=== PATIENT | female | born 1945 | race Caucasian/White ===

== ENCOUNTER → 2018-11-23 | Outpatient (CLI) | payer MEDICARE ==
[~2018-11-23] MED LIST: AZOPT; BLOOD PRESSURE MED PO; CEPH-368 PO; DOXYLAMINE; INSU100V12 SQ-INSULIN; INSU100V13 SQ-INSULIN; LOSA100T14 PO; LUMIGAN; METR500T PO; OMEP-110 PO; PREG25CA PO; SERT25TA PO; TETR15DR16 EACHEYE; TIMOLOL MALEATE; TRAM-47 PO
== END | disposition home or self-care (01) ==
LOC: CFH 12:28
PROVIDERS: ATTEND Family Medicine
DX: Z12.39 Encounter for other screening for malignant neoplasm of breast (principal); R92.1 Mammographic calcification found on diagnostic imaging of breast; M85.88 Other specified disorders of bone density and structure, other site
CPT/HCPCS: 76642; 77080; 77066

== ENCOUNTER 2019-01-06 14:07 | Outpatient (CLI) | payer MEDICARE | END 2019-01-06 23:59 | disposition home or self-care (01) | LOC: CVU 14:07 | PROVIDERS: ATTEND Internal Medicine Cardiovascular Disease | DX: I08.0 Rheumatic disorders of both mitral and aortic valves (principal); E65 Localized adiposity; I10 Essential (primary) hypertension; E11.9 Type 2 diabetes mellitus without complications; Z87.891 Personal history of nicotine dependence; Z86.73 Personal history of transient ischemic attack (TIA), and cerebral infarction without residual deficits | CPT/HCPCS: 93306; 94060; 94726; 94729 ==

== ENCOUNTER 2019-03-26 08:06 | Inpatient (IN) | payer MEDICARE ==
[2019-03-23 13:09] LABS: BASOPHILS # (AUTO) 0.03 x10^3/uL (0-0.1); BASOPHILS % (AUTO) 0 % (0-1); EOSINOPHILS # (AUTO) 0.32 x10^3/uL (0-0.4); EOSINOPHILS % (AUTO) 3 % (1-7); LYMPHOCYTES # (AUTO) 2.21 x10^3/uL (1-3.4); LYMPHOCYTES % (AUTO) 21 % (22-44); MD NO; MEAN CORPUSCULAR HEMOGLOBIN 30.2 pg (27.0-34.8); MEAN CORPUSCULAR HGB CONC 32.6 g/dL (32.4-35.8); MEAN CORPUSCULAR VOLUME 92.8 fL (80-100); MEAN PLATELET VOLUME 7.8 fL (7.4-10.4); MONOCYTES # (AUTO) 0.88 x10^3/uL (0.2-0.8); MONOCYTES % (AUTO) 9 % (2-9); NEUTROPHILS # (AUTO) 6.94 x10^3/uL (1.8-6.8); NEUTROPHILS % (AUTO) 67 % (42-75); PLATELET COUNT 320 x10^3/uL (130-400); RED BLOOD COUNT 4.42 x10^6/uL (3.82-5.3); RED CELL DISTRIBUTION WIDTH 13.3 % (9.6-15.2)
[2019-03-23 13:10] LABS: HCT (SEDRATE) 40.7 % (34.6-47.8)
[2019-03-23 13:12] LABS: CULTURE INDICATED? YES; MICROSCOPIC INDICATED
[2019-03-23 13:15] LABS: INTERNATIONAL NORMALIZED RATIO 1.02 (0.93-1.1); PROTHROMBIN TIME 10.7 Seconds (9.6-11.5)
[2019-03-23 13:17] LABS: ALANINE AMINOTRANSFERASE 21 U/L (12-78); ALBUMIN 3.5 g/dL (3.4-5.0); ANION GAP 8 mmol/L (5-15); CALCIUM 9.3 mg/dL (8.5-10.1); CHLORIDE 103 mmol/L (98-107); CREATININE 1.18 mg/dL (0.55-1.02)
[2019-03-23 13:19] LABS: ALKALINE PHOSPHATASE 67 U/L (45-117); BILIRUBIN,TOTAL 0.4 mg/dL (0.2-1.0); TOTAL PROTEIN 7.2 g/dL (6.4-8.2)
[~2019-03-26] VITALS: Ht 154.9 cm; Wt 58.3 kg
[~2019-03-26 08:06] MED LIST changes: +BACITRACIN 50,000 UNIT ONE; +BUPIVACAINE/EPI 0.5% 1:200K ONE; +LOSA50TA14 PO; +THROMBIN 20,000 UNIT VIAL TP ONE; +TRAM50TA2 PO; +TRANEXAMIC ACID 100 MG/ML, 10ML ONE
[2019-03-26] MEDS ORDERED: VANCOMYCIN PMX 1GM/200ML 200 ML IV STA (08:28)
[2019-03-26] MEDS ORDERED: LACTATED RINGERS 1,000 ML IV SCH (08:47)
[2019-03-26] MEDS ORDERED: MIDAZOLAM 1 MG/ML, 2ML ONE (09:36)
[2019-03-26] MEDS ORDERED: FENTANYL PF 250 MCG/5ML ONE (09:36)
[2019-03-26] MEDS ORDERED: PROPOFOL 100 ML ONE (09:36)
[2019-03-26] MEDS ORDERED: GLYCOPYRROLATE 0.4 MG/2 ML, 2ML ONE (09:39)
[2019-03-26] MEDS ORDERED: NEOSTIGMINE 1 MG/ML, 10ML ONE (09:39)
[2019-03-26] MEDS ORDERED: FENTANYL PF 100 MCG/2ML ONE (10:11)
[2019-03-26] MEDS ORDERED: DEXAMETHASONE 4 MG/ML, 1ML ONE (11:05)
[2019-03-26] MEDS ORDERED: EPHEDRINE 50 MG/ML, 1ML ONE (11:18)
[2019-03-26] MEDS ORDERED: hydrALAzine 20 MG/ML, 1ML IV PRN (12:00)
[2019-03-26] MEDS ORDERED: PROMETHAZINE 25 MG/ML, 1ML IV PRN (12:00)
[2019-03-26] MEDS ORDERED: HYDROcodone/APAP 7.5-325MG/15ML UDC PO PRN (12:00)
[2019-03-26] MEDS ORDERED: DIAZEPAM 5 MG/ML, 2ML IVPush PRN (12:00)
[2019-03-26] MEDS ORDERED: FENTANYL PF 100 MCG/2ML IV PRN (12:00)
[2019-03-26] MEDS ORDERED: ONDANSETRON 2MG/ML, 2ML IV PRN ×2 (12:00→16:00)
[2019-03-26] MEDS ORDERED: LABETALOL 5MG/ML, 20ML IV PRN ×2 (12:00→16:00)
[2019-03-26] MEDS ORDERED: THROMBIN 5,000 UNIT VIAL TP ONE (12:24)
[2019-03-26] MEDS ORDERED: PROPOFOL 10 MG/ML, 20ML ONE (12:32)
[2019-03-26] MEDS ORDERED: ONDANSETRON 2MG/ML, 2ML ONE (12:47)
[2019-03-26] MEDS ORDERED: HYDROcodone/APAP 7.5-325MG/15ML UDC PO STA (13:32)
[2019-03-26] MEDS ORDERED: KETOROLAC 30 MG/1 ML IVPush STA (13:33)
[2019-03-26] MEDS ORDERED: HYDROcodone/APAP 7.5-325MG/15ML UDC ONE (13:40)
[2019-03-26] MEDS ORDERED: DIPHENHYDRAMINE 50 MG/ML, 1ML ONE (13:40)
[2019-03-26] MEDS ORDERED: KETOROLAC 30 MG/1 ML ONE (13:40)
[2019-03-26] MEDS ORDERED: HYDROmorphone 2 MG/ML, 1ML ONE (13:58)
[2019-03-26] MEDS ORDERED: DIPHENHYDRAMINE 50 MG/ML, 1ML IVPush ONE (14:00)
[2019-03-26] MEDS: HYDROmorphone 2 MG/ML, 1ML IVPush PRN ×4 (14:00→14:28)
[2019-03-26 15:20] VITALS: BP 125/53
[2019-03-26] MEDS ORDERED: DIPHENHYDRAMINE 50 MG CAPSULE PO PRN (16:00)
[2019-03-26] MEDS ORDERED: OXYcodone IR 5MG TABLET PO PRN (16:00)
[2019-03-26] MEDS ORDERED: PROMETHAZINE 25 MG/ML, 1ML IM PRN (16:00)
[2019-03-26] MEDS ORDERED: DIPHENHYDRAMINE 50 MG/ML, 1ML IM PRN (16:00)
[2019-03-26] MEDS ORDERED: BISACODYL 10 MG SUPP PR PRN (16:00)
[2019-03-26] MEDS ORDERED: SODIUM CHLORIDE 0.9% 1,000ML IVBOLUS PRN (16:00)
[2019-03-26] MEDS ORDERED: DIAZEPAM 5 MG TABLET PO PRN (16:00)
[2019-03-26] MEDS ORDERED: KETOROLAC 30 MG/1 ML IV ONE (16:00)
[2019-03-26] MEDS ORDERED: LORazepam 1MG TABLET PO PRN (16:00)
[2019-03-26] MEDS ORDERED: ACETAMINOPHEN 650 MG SUPP PR PRN (16:00)
[2019-03-26] MEDS ORDERED: DIPHENHYDRAMINE 50 MG/ML, 1ML IVPush PRN (16:00)
[2019-03-26] MEDS ORDERED: DIAZEPAM 5 MG/ML, 2ML IV PRN (16:00)
[2019-03-26] MEDS ORDERED: LACTATED RINGERS 1,000 ML IVBOLUS PRN (16:00)
[2019-03-26] MEDS ORDERED: HYDROcodone/APAP 10/325 MG TABLET PO PRN (16:00)
[2019-03-26] MEDS ORDERED: ACETAMINOPHEN 500 MG TABLET PO PRN (16:00)
[2019-03-26] MEDS: CEFAZOLIN PMX 1GM/50ML 50 ML IVPB SCH (16:13)
[2019-03-26] MEDS: D5%-0.9% NACL+KCL 20MEQ 1,000 ML IV SCH (16:13)
[2019-03-26] MEDS: TETRAHYDROZOLINE OPHTH 0.05% 15ML OP SCH (20:39)
[2019-03-26] MEDS: INSULIN GLARGINE 100 UNITS/ML, PEN SQ-INSULIN SCH (20:39)
[2019-03-26] MEDS: SERTRALINE 50MG TABLET PO SCH (20:39)
[2019-03-26] MEDS: OMEPRAZOLE 20 MG CAPSULE.DR PO SCH (20:39)
[2019-03-26] MEDS: LOSARTAN 50MG TABLET PO SCH (20:39)
[2019-03-26 20:58] VITALS: BP 104/54
[2019-03-26] MEDS ORDERED: ZOLPIDEM 5MG TABLET PO PRN (21:00)
[2019-03-26] MEDS: OXYcodone/APAP 5/325MG TABLET PO PRN ×2 (23:06→23:44)
[2019-03-26] MEDS ORDERED: KETOROLAC 30 MG/1 ML IM PRN (23:30)
[2019-03-27 00:35] VITALS: BP 112/65
[2019-03-27] MEDS: CEFAZOLIN PMX 1GM/50ML 50 ML IVPB SCH (01:04)
[2019-03-27] MEDS: D5%-0.9% NACL+KCL 20MEQ 1,000 ML IV SCH ×3 (01:48→23:33)
[2019-03-27 05:27] LABS: BASOPHILS # (AUTO) 0.13 x10^3/uL (0-0.1); BASOPHILS % (AUTO) 1 % (0-1); EOSINOPHILS % (AUTO) 0 % (1-7); LYMPHOCYTES # (AUTO) 0.67 x10^3/uL (1-3.4); LYMPHOCYTES % (AUTO) 4 % (22-44); MD NO; MEAN CORPUSCULAR HEMOGLOBIN 31.1 pg (27.0-34.8); MEAN CORPUSCULAR VOLUME 94.3 fL (80-100); MEAN PLATELET VOLUME 8.3 fL (7.4-10.4); MONOCYTES # (AUTO) 0.83 x10^3/uL (0.2-0.8); MONOCYTES % (AUTO) 5 % (2-9); NEUTROPHILS % (AUTO) 90 % (42-75); PLATELET COUNT 268 x10^3/uL (130-400); RED BLOOD COUNT 3.76 x10^6/uL (3.82-5.3); RED CELL DISTRIBUTION WIDTH 13.2 % (9.6-15.2)
[2019-03-27 07:05] VITALS: BP 101/48
[2019-03-27] MEDS: SENNA/DOCUSATE TABLET PO SCH (07:29)
[2019-03-27] MEDS: MAGNESIUM HYDROXIDE 8%, 30ML UDC PO PRN (07:29)
--- NOTE | 2019-03-27 12:26 | NUR ---
REC: NPO/NGT except ice chips/sips; orange sheet posted in room with swallowing precautions Addendum: 03/27/19 at 1227 by Hope WHITE Amended: Links added.
[2019-03-27 13:14] VITALS: BP 128/74
[2019-03-27 19:50] VITALS: BP 125/49
[2019-03-27] MEDS: TETRAHYDROZOLINE OPHTH 0.05% 15ML OP SCH (20:18)
[2019-03-27] MEDS: INSULIN GLARGINE 100 UNITS/ML, PEN SQ-INSULIN SCH (20:18)
[2019-03-27] MEDS: SERTRALINE 50MG TABLET PO SCH (20:18)
[2019-03-27] MEDS: OMEPRAZOLE 20 MG CAPSULE.DR PO SCH (20:18)
[2019-03-27] MEDS: LOSARTAN 50MG TABLET PO SCH (20:18)
[2019-03-27] MEDS: morphine SULFATE 10 MG/ML, 1ML IV PRN (20:40)
[2019-03-28 00:32] VITALS: BP 133/37
[2019-03-28 05:31] LABS: BASOPHILS # (AUTO) 0.01 x10^3/uL (0-0.1); BASOPHILS % (AUTO) 0 % (0-1); EOSINOPHILS # (AUTO) 0.16 x10^3/uL (0-0.4); EOSINOPHILS % (AUTO) 1 % (1-7); LYMPHOCYTES # (AUTO) 1.99 x10^3/uL (1-3.4); LYMPHOCYTES % (AUTO) 18 % (22-44); MD NO; MEAN CORPUSCULAR HGB CONC 32.7 g/dL (32.4-35.8); MEAN CORPUSCULAR VOLUME 94.8 fL (80-100); MEAN PLATELET VOLUME 8.3 fL (7.4-10.4); MONOCYTES # (AUTO) 0.78 x10^3/uL (0.2-0.8); MONOCYTES % (AUTO) 7 % (2-9); NEUTROPHILS # (AUTO) 8.04 x10^3/uL (1.8-6.8); NEUTROPHILS % (AUTO) 73 % (42-75); PLATELET COUNT 248 x10^3/uL (130-400); RED BLOOD COUNT 3.93 x10^6/uL (3.82-5.3); RED CELL DISTRIBUTION WIDTH 13.8 % (9.6-15.2)
[2019-03-28] MEDS: SENNA/DOCUSATE TABLET PO SCH (07:32)
[2019-03-28] MEDS: morphine SULFATE 10 MG/ML, 1ML IV PRN ×2 (07:39→15:35)
[2019-03-28 08:00] VITALS: BP 147/68
[2019-03-28] MEDS: D5%-0.9% NACL+KCL 20MEQ 1,000 ML IV SCH ×2 (09:52→20:40)
[2019-03-28 14:00] VITALS: BP 134/74
[2019-03-28 20:11] VITALS: BP 127/68
[2019-03-28] MEDS: MAGNESIUM HYDROXIDE 8%, 30ML UDC PO PRN (20:17)
[2019-03-28] MEDS: SERTRALINE 50MG TABLET PO SCH (20:18)
[2019-03-28] MEDS: KETOROLAC 30 MG/1 ML IVPush PRN (20:18)
[2019-03-28] MEDS: OMEPRAZOLE 20 MG CAPSULE.DR PO SCH (20:18)
[2019-03-28] MEDS: DEXAMETHASONE 4 MG/ML, 1ML IV PRN (20:18)
[2019-03-28] MEDS: LOSARTAN 50MG TABLET PO SCH (20:18)
[2019-03-28] MEDS: TETRAHYDROZOLINE OPHTH 0.05% 15ML OP SCH (20:40)
[2019-03-28] MEDS: INSULIN GLARGINE 100 UNITS/ML, PEN SQ-INSULIN SCH (20:43)
[2019-03-29] MEDS: morphine SULFATE 10 MG/ML, 1ML IV PRN ×2 (00:15→10:01)
[2019-03-29 00:16] VITALS: BP 151/82
[2019-03-29] MEDS: DEXAMETHASONE 4 MG/ML, 1ML IV PRN ×3 (04:00→20:08)
[2019-03-29] MEDS: KETOROLAC 30 MG/1 ML IVPush PRN ×2 (04:01→13:42)
[2019-03-29 05:48] LABS: BASOPHILS # (AUTO) 0.02 x10^3/uL (0-0.1); BASOPHILS % (AUTO) 0 % (0-1); EOSINOPHILS % (AUTO) 0 % (1-7); LYMPHOCYTES # (AUTO) 0.59 x10^3/uL (1-3.4); LYMPHOCYTES % (AUTO) 6 % (22-44); MD NO; MEAN CORPUSCULAR HGB CONC 33.1 g/dL (32.4-35.8); MEAN CORPUSCULAR VOLUME 93.5 fL (80-100); MEAN PLATELET VOLUME 8.6 fL (7.4-10.4); MONOCYTES # (AUTO) 0.23 x10^3/uL (0.2-0.8); MONOCYTES % (AUTO) 2 % (2-9); NEUTROPHILS # (AUTO) 8.88 x10^3/uL (1.8-6.8); NEUTROPHILS % (AUTO) 91 % (42-75); PLATELET COUNT 291 x10^3/uL (130-400); RED BLOOD COUNT 4.15 x10^6/uL (3.82-5.3); RED CELL DISTRIBUTION WIDTH 12.9 % (9.6-15.2)
[2019-03-29] MEDS: D5%-0.9% NACL+KCL 20MEQ 1,000 ML IV SCH ×2 (06:34→19:30)
[2019-03-29 06:47] VITALS: BP 134/73
[2019-03-29] MEDS: SENNA/DOCUSATE TABLET PO SCH (07:35)
[2019-03-29 12:31] VITALS: BP 145/81
[2019-03-29] MEDS ORDERED: HYDROcodone/APAP 7.5-325MG/15ML UDC PO PRN (14:00)
[2019-03-29 18:36] VITALS: BP 122/70
[2019-03-29] MEDS: MAGNESIUM HYDROXIDE 8%, 30ML UDC PO PRN (20:07)
[2019-03-29] MEDS: SERTRALINE 50MG TABLET PO SCH (20:07)
[2019-03-29] MEDS: OMEPRAZOLE 20 MG CAPSULE.DR PO SCH (20:07)
[2019-03-29] MEDS: LOSARTAN 50MG TABLET PO SCH (20:08)
[2019-03-29] MEDS: TETRAHYDROZOLINE OPHTH 0.05% 15ML OP SCH (20:08)
[2019-03-29] MEDS: INSULIN GLARGINE 100 UNITS/ML, PEN SQ-INSULIN SCH (20:27)
[2019-03-30] MEDS: KETOROLAC 30 MG/1 ML IVPush PRN ×2 (00:03→08:20)
[2019-03-30 01:02] VITALS: BP 139/67
[2019-03-30] MEDS: D5%-0.9% NACL+KCL 20MEQ 1,000 ML IV SCH ×2 (04:38→11:09)
[2019-03-30] MEDS: DEXAMETHASONE 4 MG/ML, 1ML IV PRN (04:39)
[2019-03-30 05:13] LABS: BASOPHILS # (AUTO) 0.06 x10^3/uL (0-0.1); BASOPHILS % (AUTO) 0 % (0-1); EOSINOPHILS % (AUTO) 0 % (1-7); LYMPHOCYTES # (AUTO) 0.82 x10^3/uL (1-3.4); LYMPHOCYTES % (AUTO) 6 % (22-44); MD NO; MEAN CORPUSCULAR HEMOGLOBIN 30.4 pg (27.0-34.8); MEAN CORPUSCULAR HGB CONC 32.7 g/dL (32.4-35.8); MEAN PLATELET VOLUME 8.4 fL (7.4-10.4); MONOCYTES # (AUTO) 0.36 x10^3/uL (0.2-0.8); MONOCYTES % (AUTO) 3 % (2-9); NEUTROPHILS % (AUTO) 90 % (42-75); PLATELET COUNT 268 x10^3/uL (130-400); RED BLOOD COUNT 4.01 x10^6/uL (3.82-5.3); RED CELL DISTRIBUTION WIDTH 13.1 % (9.6-15.2)
[2019-03-30 06:36] VITALS: BP 124/60
[2019-03-30] MEDS: SENNA/DOCUSATE TABLET PO SCH (08:20)
[2019-03-30 13:54] VITALS: BP 132/46
[2019-03-30 14:25] VITALS: BP 123/66
[2019-03-30] MEDS ORDERED: DIAZ5TAB PO (14:40)
[2019-03-30] MEDS ORDERED: HYDR-3307 PO (14:40)
== END 2019-03-30 15:00 | disposition home health service (06) | DRG 472 ==
LOC: ORIP 08:06 → 4NOR 15:12 → DCLOUNGE 03-30 14:37
PROVIDERS: ADMIT Orthopaedic Surgery Orthopaedic Surgery of the Spine; ATTEND Orthopaedic Surgery Orthopaedic Surgery of the Spine
PROC: 0RG20A0 Fusion of 2 or more Cervical Vertebral Joints with Interbody Fusion Device, Anterior Approach, Anterior Column, Open Approach (ICD-10-PCS; 2019-03-26)
PROC: 00NW0ZZ Release Cervical Spinal Cord, Open Approach (ICD-10-PCS; 2019-03-26)
PROC: 4A11X4G Monitoring of Peripheral Nervous Electrical Activity, Intraoperative, External Approach (ICD-10-PCS; 2019-03-26)
PROC: 0RT30ZZ Resection of Cervical Vertebral Disc, Open Approach (ICD-10-PCS; principal; 2019-03-26 10:00)
DX: M48.02 Spinal stenosis, cervical region (principal); M50.01 Cervical disc disorder with myelopathy, high cervical region; M47.12 Other spondylosis with myelopathy, cervical region; M43.12 Spondylolisthesis, cervical region; M47.22 Other spondylosis with radiculopathy, cervical region; M50.11 Cervical disc disorder with radiculopathy, high cervical region; I10 Essential (primary) hypertension; E78.2 Mixed hyperlipidemia; I34.0 Nonrheumatic mitral (valve) insufficiency; E11.9 Type 2 diabetes mellitus without complications; J44.9 Chronic obstructive pulmonary disease, unspecified; Z86.73 Personal history of transient ischemic attack (TIA), and cerebral infarction without residual deficits; Z88.6 Allergy status to analgesic agent; Z88.0 Allergy status to penicillin; Z88.2 Allergy status to sulfonamides; Z88.8 Allergy status to other drugs, medicaments and biological substances
CPT/HCPCS: 36415; 71046; 72040; 74018; 80053; 81001; 82962; 85025; 85610; 85651; 85730; 87086; 93005; C1713; G0378; J0690; J1100; J1170; J1885; J2250; J2405; J2704; J2710; J3010; J3370; C1760; C1762; J1200; J1815; J2270; J3480; J7120

== ENCOUNTER 2019-04-20 17:39 | Inpatient (IN) | payer MEDICARE ==
[~2019-04-20] VITALS: Ht 154.9 cm; Wt 49.6 kg
[~2019-04-20 17:39] MED LIST changes: -BACITRACIN 50,000 UNIT ONE; -BUPIVACAINE/EPI 0.5% 1:200K ONE; +CLOB15CR TP; +DIAZ5TAB PO; +DOCU-131 PO; +HYDR-3307 PO; +POLY17PO5 PO; -THROMBIN 20,000 UNIT VIAL TP ONE; -TRANEXAMIC ACID 100 MG/ML, 10ML ONE
--- NOTE | 2019-04-20 17:39 | NUR ---
PT ARRIVED VIA [facility]. PT C/O NO SPEECH/DIFFICULT WITH SPEECH PRODUCTION. ONSET OF SYMTPOMS AT APPROX. 1715 PER EMS REPORT. UPON ARRIVAL TO ER, PT TAKEN STRAIGHT TO CT. MET PT IN HALLWAY FOR EXAM. PT EXPERIENCING POSS. LIMB ATAXIA IN RIGHT ARM BUT FOLLOWING COMMANDS. PT ABLE TO STATE NAME BUT UNABLE TO ANSWER OTHER QUESTIONS. PIV X 2 ESTABLISHED ELEMENTARY READING TUTOR BY EMS. FS ON SCENE 90. PER EMS REPORT, THEY RECEIVED WORD FROM FAMILY THAT PT HAS A HX TIAS AND NECK SURGERY WITH A POSS. 50% OCCLUSION OF CAROTID ARTERY. VITALS FROM EMS 128/74, HR 80 SINUS, 16 RESPIRATORY RATE, 97% ON ROOM AIR.
--- NOTE | 2019-04-20 17:47 | NUR ---
PT IN CT SCANNER AT THIS TIME.
--- NOTE | 2019-04-20 17:56 | NUR ---
PT BACK FROM CT TO TRAUMA BAY 04.
--- NOTE | 2019-04-20 17:58 | NUR ---
NEUROLOGIST AT BEDSIDE FOR EXAM. EXAM INCONSISTENT WITH PREVIOUS EXAM, MD AWARE.
--- NOTE | 2019-04-20 18:00 | NUR ---
UPON ARRIVAL BACK INTO ROOM, PT ABLE TO CONVERSE WITH FAMILY AND STAFF. PT SPEAKING IN COMPLETE AND CLEAR SENTENCES. STATES "ENTIRE BODY FEELS HEAVY AND WEAK." PT UNABLE TO LIFT ALL EXTREMITIES OFF GURNEY, MOVEMENTS APPEARED TO STAFF VERY SHAKEY.
[2019-04-20] MEDS ORDERED: OMNIPAQUE 350 MG/ML, 100ML BOTTLE ONE (18:05)
--- NOTE | 2019-04-20 18:07 | NUR ---
PT BELONGINGS GIVEN TO DAUGHTER (PHONE AND WALLET).
[2019-04-20 18:15] LABS: BASOPHILS # (AUTO) 0.06 x10^3/uL (0-0.1); BASOPHILS % (AUTO) 1 % (0-1); EOSINOPHILS # (AUTO) 0.25 x10^3/uL (0-0.4); EOSINOPHILS % (AUTO) 3 % (1-7); LYMPHOCYTES # (AUTO) 2.05 x10^3/uL (1-3.4); LYMPHOCYTES % (AUTO) 24 % (22-44); MD NO; MEAN CORPUSCULAR HEMOGLOBIN 31.6 pg (27.0-34.8); MEAN CORPUSCULAR HGB CONC 33.7 g/dL (32.4-35.8); MEAN CORPUSCULAR VOLUME 93.7 fL (80-100); MEAN PLATELET VOLUME 7.6 fL (7.4-10.4); MONOCYTES # (AUTO) 0.68 x10^3/uL (0.2-0.8); MONOCYTES % (AUTO) 8 % (2-9); NEUTROPHILS # (AUTO) 5.51 x10^3/uL (1.8-6.8); NEUTROPHILS % (AUTO) 64 % (42-75); PLATELET COUNT 340 x10^3/uL (130-400); RED BLOOD COUNT 3.72 x10^6/uL (3.82-5.3); RED CELL DISTRIBUTION WIDTH 13.5 % (9.6-15.2)
--- NOTE | 2019-04-20 18:15 | NUR ---
DISCUSSION WITH ED MD AND NEUROLOGIST HAD REGARDING INCONSISTENCIES IN NEURO EXAM, ALL CONCUR THAT PT SHOULD GET MRI BEFORE ADMINISTERING THROMBOLYTICS.
[2019-04-20 18:24] LABS: INTERNATIONAL NORMALIZED RATIO 1.05 (0.93-1.1)
--- NOTE | 2019-04-20 18:31 | NUR ---
NEURO ASSESSMENT PERFORMED AGAIN, AND AGAIN INCONSISTENT WITH PREVIOUS EXAM. PT SPEAKING, BUT WORDS ARE GARBLED AND SENTENCES ARE NOT MAKING SENSE. MOVEMENTS ARE THE SAME PREVIOUS EXAM. FAMILY AT BEDSIDE.
--- NOTE | 2019-04-20 18:50 | NUR ---
FAMILY GRABBED THIS RN IN HALLWAY. PT STATING "EXTREME PAIN IN HEAD," AND FAMILY STATES PT'S BP SPIKED TO 176. MD NOTIFIED AND MD TO BEDSIDE, NO NEW ORDERS RECEIVED. PLAN STILL FOR MRI BEFORE POSSIBLE TPA ADMINISTRATION.
[2019-04-20] MEDS ORDERED: LORazepam 2 MG/ML, 1ML ONE (19:06)
--- NOTE | 2019-04-20 19:10 | NUR ---
ASSUMED CARE OF PT AT THIS TIME. BEDSIDE REPORT AND CARE FROM HARRIET ROBLES RN'S. DR. LIMA, NEUROLOGIST, AT BEDSIDE. NEURO EVALUATION UNCHANGED PER MD, ALL EXTREMITIES WEAK, ABLE TO SLIGHTLY LIFT BOTH ARMS BUT SHAKING NOTED. UNABLE TO LIFT OR FOLLOW COMMANDS ON BLE EXAM, BUT STATES "I CAN FEEL YOU TOUCHING MY LEGS AND FEET THOUGH." PT ABLE TO STATE FIRST AND LAST NAME, MONTH, AND WHEN ASKED WHO THE PRESIDENT IS SHE STATED "I CAN'T REMEMBER HIS NAME BUT HE IS A WHITE MAN." PT SPEAKING IN FULL CLEAR SENTENCES AT THIS TIME. NO FACIAL OR MOUTH DROOP NOTED CURRENTLY. PT DENIES ANY HEAD OR HEADACHE PAIN, "MY NECK IS A LITTLE SORE, I HAD SURGERY A FEW WEEKS AGO." REPOSITIONED FOR COMFORT. MRI CALLED, TO COME TAKE PT. PT MEDICATED WITH ATIVAN PER PT AND FAMILY REQUEST FOR ANXITY WITH MRI EXAM. PT AND FAMILY DENIES ALLERGY TO ATIVAN. CONT PULSE OX, BP, CARDIAC MONITORS ARE IN PLACE, SR ON MONITOR. VSS. CALL LIGHT IN REACH. FALL PRECAUTIONS IN PLACE. SIDE RAILS UPX2. PT AND FAMILY UPDATED ON POC. AWAITING MRI RESULTS FOR DETERMINATION OF TPA APPROPRIATENESS FOR PT.
--- NOTE | 2019-04-20 19:11 | NUR ---
PT TO MRI AT THIS TIME. DR. LIMA AT BEDSIDE, AWARE. DISCUSSED POC WITH DR. LIMA AND DR. FLORES, NO NEW ORDERS RECEIVED. AWAITING MRI RESULTS.
[2019-04-20] MEDS ORDERED: LORazepam 2 MG/ML, 1ML IVPush ONE (19:30)
--- NOTE | 2019-04-20 19:38 | NUR ---
PT BACK FROM MRI. NEURO REMAINS UNCHANGED. PT SPEAKING IN FULL SENTENCES. DR. LIMA AT BEDSIDE DISCUSSING POC WITH PT. PT TO BE ADMITTED TO HOSPITAL, VERBALIZED UNDERSTANDING AND AGREES TO POC. VSS. ALL MONITORS IN PLACE. SR ON MONITOR. CALL LIGHT IN REACH. FALL PRECAUTIONS IN PLACE.
[2019-04-20] MEDS ORDERED: ASPIRIN 325 MG TABLET PO STA (19:44)
--- NOTE | 2019-04-20 19:45 | NUR ---
FAMILY BACK AT BEDSIDE. DR. FLORES AT BEDSIDE DISCUSSING POC AND TEST RESULTS WITH PT AND PT DAUGHTER/SON-IN-LAW. ALL VERBALIZED UNDERSTANDING, AGREE TO POC. AWAITING ROOM ON FLOOR. CALL LIGHT IN REACH.
[2019-04-20] MEDS ORDERED: ASPIRIN 325 MG TABLET ONE (19:55)
--- NOTE | 2019-04-20 19:58 | NUR ---
PT SWALLOW EVALUATION COMPLETED, PASSED. AIRWAY PATENT, ABLE TO SWALLOW WATER AND CLEAR OWN SECRETIONS WITHOUT DIFFICULTY. PT MORE ALERT AT THIS TIME, SPEECH EVEN MORE CLEAR, SPEAKING IN FULL SENTENCES, MEMORY IMPROVED, ABLE TO RECALL PLACE "[place]" ABLE TO RECALL GRANDSON'S NAME "DAVID MAYES" AND FATHER'S NAME "SMOKEY IS WHAT HE WENT BY." PT STILL UNABLE TO CALL YEAR OF "MAY" FOR MONTH. PT ABLE TO HOLD ON WATER AND TAKE SIPS WITH DIFFICULTY, MOVING ALL EXTREMITIES, BENDING LEGS INTO POSITION OF COMFORT AND MOVING ARMS WITHOUT ANY SHAKING. SR ON MONITOR. VSS. CALL LIGHT IN REACH. FALL PRECAUTIONS IN PLACE. AWAITING ROOM ON FLOOR.
--- NOTE | 2019-04-20 20:16 | NUR ---
PHONE/VERBAL REPORT TO JANIE BLEDSOE FOR ROOM 402-2. PT READY FOR TRANSPORT TO FLOOR
--- NOTE | 2019-04-20 20:30 | NUR ---
PT TRANSFERRED TO FLOOR AT THIS TIME WITH FAMILY, ALL BELONGINGS COLLECTED AND SENT TO FLOOR WITH PT. PT NEURO EVALUATION IMPROVED, ORIENTED TO SELF, RECALLING EVENT, MEDICAL HISTORY AND FAMILY INFORMATION THAT SHE WAS NOT ABLE TO COMMUNICATE PRIOR. WEAKNESS IMPROVING, MOVING ALL EXTREMITIES. SPEECH CLEAR, SPEAKING IN FULL SENTENCES. NO FACIAL/MOUTH DROOP NOTED. DENIES ANY PAIN, NUMBNESS/TINGLING, AND NEED TO USE RESTROOM. WARM BLANKETS AND SOCKS PROVIDED FOR COMFORT.
--- NOTE | 2019-04-20 20:48 | NUR ---
LATE ENTRY FOR 1940: NO TPA TO BE ADMIN PER DR. LIMA AND DR. FLORES AT THIS TIME S/P MRI, ASPIRIN 325MG PO TO BE ADMIN PER MD'S ORDERS.
[2019-04-20 21:00] VITALS: BP 154/70
[2019-04-20 21:13] VITALS: BP 154/70
[2019-04-20] MEDS ORDERED: TEMAZEPAM 15 MG CAPSULE PO PRN (23:00)
[2019-04-20] MEDS: ACETAMINOPHEN 650 MG/20.3 ML UDC PO PRN (23:02)
[2019-04-20] MEDS: HEPARIN 5,000 UNITS/ML, 1ML SQ SCH (23:03)
[2019-04-20] MEDS ORDERED: INSU100V8 SQ (23:14)
[2019-04-21 03:08] VITALS: BP 145/77
[2019-04-21 05:46] LABS: BASOPHILS # (AUTO) 0.04 x10^3/uL (0-0.1); BASOPHILS % (AUTO) 1 % (0-1); EOSINOPHILS # (AUTO) 0.32 x10^3/uL (0-0.4); EOSINOPHILS % (AUTO) 4 % (1-7); LYMPHOCYTES # (AUTO) 2.21 x10^3/uL (1-3.4); LYMPHOCYTES % (AUTO) 27 % (22-44); MD NO; MEAN CORPUSCULAR HEMOGLOBIN 30.2 pg (27.0-34.8); MEAN CORPUSCULAR HGB CONC 32.9 g/dL (32.4-35.8); MEAN CORPUSCULAR VOLUME 91.9 fL (80-100); MEAN PLATELET VOLUME 7.6 fL (7.4-10.4); MONOCYTES # (AUTO) 0.67 x10^3/uL (0.2-0.8); MONOCYTES % (AUTO) 8 % (2-9); NEUTROPHILS # (AUTO) 4.87 x10^3/uL (1.8-6.8); NEUTROPHILS % (AUTO) 60 % (42-75); PLATELET COUNT 320 x10^3/uL (130-400); RED BLOOD COUNT 3.91 x10^6/uL (3.82-5.3); RED CELL DISTRIBUTION WIDTH 13.7 % (9.6-15.2)
[2019-04-21 05:47] LABS: ANION GAP 8 mmol/L (5-15); CALCIUM 8.8 mg/dL (8.5-10.1); CHLORIDE 102 mmol/L (98-107); CHOLESTEROL, TOTAL 176 mg/dL (140-239); CREATININE 0.87 mg/dL (0.55-1.02); TRIGLYCERIDES 216 mg/dL (50-200); VLDL CHOLESTEROL 43 mg/dL (0-25)
[2019-04-21 05:49] LABS: CHOL/HDL RATIO 4.4; HDL CHOL % 23 % (28-40); HDL CHOLESTEROL (DIRECT) 40 mg/dL (40-60); LDL CHOLESTEROL,CALCULATED 93 mg/dL (54-169); LDL/HDL RATIO 2.3 (0.5-3.0)
[2019-04-21 07:48] VITALS: BP 119/78
[2019-04-21] MEDS: CLOPIDOGREL 75 MG TABLET PO SCH (07:51)
[2019-04-21] MEDS: ASPIRIN 81 MG TABLET CHEW PO/NG SCH (07:51)
[2019-04-21] MEDS: HEPARIN 5,000 UNITS/ML, 1ML SQ SCH ×2 (07:51→16:02)
[2019-04-21] MEDS: ACETAMINOPHEN 650 MG/20.3 ML UDC PO PRN (09:44)
[2019-04-21] MEDS ORDERED: DIAZEPAM 5 MG TABLET PO PRN (11:00)
[2019-04-21 12:53] VITALS: BP 95/53
[2019-04-21] MEDS ORDERED: SERTRALINE 50MG TABLET PO SCH (20:00)
[2019-04-21 20:04] VITALS: BP 126/65
[2019-04-21] MEDS: SERTRALINE 50MG TABLET PO SCH (20:31)
[2019-04-21] MEDS ORDERED: OMEPRAZOLE 20 MG CAPSULE.DR PO SCH (21:00)
[2019-04-22 00:18] VITALS: BP 145/55
[2019-04-22] MEDS: HEPARIN 5,000 UNITS/ML, 1ML SQ SCH ×2 (00:22→09:42)
[2019-04-22 03:35] VITALS: BP 134/72
[2019-04-22 06:59] VITALS: BP 93/54
[2019-04-22] MEDS ORDERED: CLOP75TA PO (09:11)
[2019-04-22] MEDS ORDERED: ASPI-515 PO/NG (09:11)
[2019-04-22] MEDS ORDERED: SERT25TA PO (09:11)
[2019-04-22] MEDS: CLOPIDOGREL 75 MG TABLET PO SCH (09:41)
[2019-04-22] MEDS: ASPIRIN 81 MG TABLET CHEW PO/NG SCH (09:42)
[2019-04-22] MEDS: SERTRALINE 50MG TABLET PO SCH (09:42)
== END 2019-04-22 11:10 | disposition home or self-care (01) | DRG 69 ==
LOC: ED 19:59 → EDIP 20:00 → 4WST 20:34 → DCLOUNGE 04-22 11:00
PROVIDERS: ADMIT Family Medicine; ATTEND Family Medicine
DX: G45.9 Transient cerebral ischemic attack, unspecified (principal); R47.01 Aphasia; E11.9 Type 2 diabetes mellitus without complications; E78.5 Hyperlipidemia, unspecified; I10 Essential (primary) hypertension; I25.10 Atherosclerotic heart disease of native coronary artery without angina pectoris; J44.9 Chronic obstructive pulmonary disease, unspecified; K22.0 Achalasia of cardia; L90.0 Lichen sclerosus et atrophicus; R29.703 NIHSS score 3; Z79.4 Long term (current) use of insulin; Z90.49 Acquired absence of other specified parts of digestive tract; Z88.2 Allergy status to sulfonamides; Z88.5 Allergy status to narcotic agent; Z88.8 Allergy status to other drugs, medicaments and biological substances; Z79.899 Other long term (current) drug therapy; Z87.891 Personal history of nicotine dependence; Z90.710 Acquired absence of both cervix and uterus; Z98.1 Arthrodesis status; Z86.73 Personal history of transient ischemic attack (TIA), and cerebral infarction without residual deficits
CPT/HCPCS: 0399T; 36415; 70450; 70496; 70498; 70551; 80047; 80048; 80061; 82962; 85025; 85610; 85730; 93005; 93306; 96374; G0378; J1644; Q9967; J2060

== ENCOUNTER 2019-05-21 12:18 | Outpatient (CLI) | payer MEDICARE | END 2019-05-21 23:59 | disposition home or self-care (01) | LOC: RAD 12:18 | PROVIDERS: ATTEND Internal Medicine Gastroenterology | DX: K21.9 Gastro-esophageal reflux disease without esophagitis (principal); K22.2 Esophageal obstruction; E11.8 Type 2 diabetes mellitus with unspecified complications; R13.19 Other dysphagia; J44.9 Chronic obstructive pulmonary disease, unspecified; G89.29 Other chronic pain | CPT/HCPCS: 74220 ==

== ENCOUNTER 2019-05-25 08:36 | Outpatient (CLI) | payer MEDICARE | END 2019-05-25 23:59 | disposition home or self-care (01) | LOC: CFH 08:36 | PROVIDERS: ATTEND Internal Medicine Cardiovascular Disease | DX: R07.89 Other chest pain (principal); R06.02 Shortness of breath | CPT/HCPCS: 78452; 93017; A9502; J2785 ==

== ENCOUNTER 2019-08-25 13:44 | Inpatient (IN) | payer MEDICARE ==
[~2019-08-25] VITALS: Ht 154.9 cm; Wt 49.8 kg
[~2019-08-25 13:44] MED LIST changes: +ASPI-496 PO; +ASPI-515 PO/NG; +CLOP75TA PO; +EZET10TA48 PO; +FURO-93 PO; -HYDR-3307 PO; +HYDR-36 PO; +INSU100V8 SQ; +LISI-170 PO; +METO-282 PO; +METO25TA35 PO/NG; +MIRT-34 PO; +NITR0.4T28 SL; +POTA10TA PO; +POTA20TA6 PO
--- NOTE | 2019-08-25 14:16 | NUR ---
PT WITH HX OF ESOPHAGEAL STENT S/P REMOVAL, PT STATES THE LAST FOUR DAYS SHE HAS HAD DIFFICULTY KEEPING FOOD/LIQUID DOWN. WORSE THIS AM. PT DENIES CP, SOB, TRAUMA. PT TO BP, CONT PULSE OX
--- NOTE | 2019-08-25 15:06 | NUR ---
PT RESTING ON ENZO AT THIS TIME, NAD NOTED, VSS. AWAITING PROVIDER ORDERS
[2019-08-25] MEDS ORDERED: OMNIPAQUE 350 MG/ML, 50 ML BOTTLE ONE (15:55)
[2019-08-25 15:57] LABS: BASOPHILS # (AUTO) 0.02 x10^3/uL (0-0.1); BASOPHILS % (AUTO) 0 % (0-1); EOSINOPHILS # (AUTO) 0.31 x10^3/uL (0-0.4); EOSINOPHILS % (AUTO) 4 % (1-7); LYMPHOCYTES # (AUTO) 2.25 x10^3/uL (1-3.4); LYMPHOCYTES % (AUTO) 30 % (22-44); MD NO; MEAN CORPUSCULAR HEMOGLOBIN 30.5 pg (27.0-34.8); MEAN CORPUSCULAR HGB CONC 32.5 g/dL (32.4-35.8); MEAN CORPUSCULAR VOLUME 93.9 fL (80-100); MEAN PLATELET VOLUME 7.8 fL (7.4-10.4); MONOCYTES # (AUTO) 0.59 x10^3/uL (0.2-0.8); MONOCYTES % (AUTO) 8 % (2-9); NEUTROPHILS # (AUTO) 4.35 x10^3/uL (1.8-6.8); NEUTROPHILS % (AUTO) 58 % (42-75); PLATELET COUNT 371 x10^3/uL (130-400); RED BLOOD COUNT 4.19 x10^6/uL (3.82-5.3); RED CELL DISTRIBUTION WIDTH 15.4 % (9.6-15.2)
--- NOTE | 2019-08-25 15:59 | NUR ---
PT BACK FROM ESOPHOGRAM, BP ELEVATED, WILL UPDATE ERMD. NAD AT THIS TIME. NO NEEDS VOICED BY PT
[2019-08-25 16:01] LABS: ALANINE AMINOTRANSFERASE 18 U/L (12-78); ALBUMIN 3.1 g/dL (3.4-5.0); ANION GAP 5 mmol/L (5-15); CALCIUM 9.2 mg/dL (8.5-10.1); CHLORIDE 108 mmol/L (98-107)
[2019-08-25 16:06] LABS: ALKALINE PHOSPHATASE 87 U/L (45-117); BILIRUBIN,TOTAL 0.5 mg/dL (0.2-1.0); CREATININE 0.78 mg/dL (0.55-1.02); TROPONIN I < 0.015 ng/mL (0.000-0.045)
--- NOTE | 2019-08-25 16:51 | NUR ---
PT RESTING ON KURTIS GIRALDO NOTED. DAUGHTER AT BEDSIDE, ERMD IN TO UPDATE PT ON POC, PT TO BE ADMITTED
[2019-08-25] MEDS ORDERED: EZET10TA70 PO (17:29)
[2019-08-25] MEDS ORDERED: CLOP75TA PO (17:29)
[2019-08-25] MEDS ORDERED: RANI150C PO (17:29)
[2019-08-25] MEDS ORDERED: ACETAMINOPHEN 325 MG TABLET PO PRN (17:30)
[2019-08-25] MEDS ORDERED: morphine SULFATE 10 MG/ML, 1ML IVPush PRN (17:30)
[2019-08-25] MEDS ORDERED: ONDANSETRON 2MG/ML, 2ML IVPush PRN (17:30)
[2019-08-25] MEDS ORDERED: NITROGLYCERIN SINGLE TAB 0.4 MG SL PRN (17:30)
[2019-08-25] MEDS ORDERED: ENALAPRILAT 1.25 MG/ML, 2ML IVPush PRN (17:30)
[2019-08-25] MEDS ORDERED: hydrALAzine 20 MG/ML, 1ML IVPush PRN (17:30)
[2019-08-25] MEDS ORDERED: DIAZEPAM 5 MG TABLET PO PRN (17:30)
[2019-08-25] MEDS ORDERED: ONDANSETRON ODT 4 MG PO PRN (17:30)
[2019-08-25] MEDS ORDERED: PROMETHAZINE 25 MG/ML, 1ML IM PRN (17:30)
--- NOTE | 2019-08-25 18:15 | NUR ---
REPORT CALLED TO RECIEVING RN
[2019-08-25 18:45] VITALS: BP 170/94
[2019-08-25] MEDS: D5%-0.45NACL+KCL 20MEQ 1,000 ML IV SCH (19:45)
[2019-08-25] MEDS: OMEPRAZOLE 20 MG CAPSULE.DR PO SCH (19:50)
[2019-08-25] MEDS: MIRTAZAPINE 15 MG TABLET PO SCH (19:50)
[2019-08-25] MEDS: METOPROLOL SUCCINATE 25 MG TAB.ER.24H PO SCH (19:51)
[2019-08-25] MEDS: PVP EACHEYE SCH (20:21)
[2019-08-25] MEDS: TETRAHYDRZ EACHEYE SCH (20:21)
[2019-08-25] MEDS: PEG EACHEYE SCH (20:21)
[2019-08-25] MEDS: DEXT EACHEYE SCH (20:21)
[2019-08-25 20:56] VITALS: BP 164/85
[2019-08-25 23:11] VITALS: BP 164/76
[2019-08-26 01:11] VITALS: BP 176/73
[2019-08-26 01:33] VITALS: BP 156/73
[2019-08-26 05:18] LABS: BASOPHILS # (AUTO) 0.02 x10^3/uL (0-0.1); BASOPHILS % (AUTO) 0 % (0-1); EOSINOPHILS % (AUTO) 6 % (1-7); LYMPHOCYTES # (AUTO) 1.83 x10^3/uL (1-3.4); LYMPHOCYTES % (AUTO) 27 % (22-44); MD NO; MEAN CORPUSCULAR HEMOGLOBIN 30.7 pg (27.0-34.8); MEAN CORPUSCULAR HGB CONC 32.9 g/dL (32.4-35.8); MEAN CORPUSCULAR VOLUME 93.5 fL (80-100); MEAN PLATELET VOLUME 8.1 fL (7.4-10.4); MONOCYTES # (AUTO) 0.69 x10^3/uL (0.2-0.8); MONOCYTES % (AUTO) 10 % (2-9); NEUTROPHILS # (AUTO) 3.85 x10^3/uL (1.8-6.8); NEUTROPHILS % (AUTO) 57 % (42-75); PLATELET COUNT 321 x10^3/uL (130-400); RED BLOOD COUNT 4.01 x10^6/uL (3.82-5.3); RED CELL DISTRIBUTION WIDTH 15.2 % (9.6-15.2)
[2019-08-26 05:26] LABS: ANION GAP 7 mmol/L (5-15); CALCIUM 8.6 mg/dL (8.5-10.1); CHLORIDE 109 mmol/L (98-107)
[2019-08-26 05:27] LABS: CREATININE 0.72 mg/dL (0.55-1.02)
[2019-08-26] MEDS: D5%-0.45NACL+KCL 20MEQ 1,000 ML IV SCH ×3 (06:03→22:38)
[2019-08-26 07:20] VITALS: BP 160/76
[2019-08-26] MEDS ORDERED: PROPOFOL 10 MG/ML, 50ML ONE (11:24)
[2019-08-26] MEDS ORDERED: HALOPERIDOL 5 MG/ML IV PRN (12:00)
[2019-08-26] MEDS ORDERED: HYDROmorphone 2 MG/ML, 1ML IVPush PRN (12:00)
[2019-08-26] MEDS ORDERED: ALBUTEROL SULFATE 2.5 MG/3 ML NPPB PRN (12:00)
[2019-08-26] MEDS ORDERED: hydrALAzine 20 MG/ML, 1ML IV PRN ×2 (12:00→20:30)
[2019-08-26] MEDS ORDERED: FENTANYL PF 100 MCG/2ML IV PRN (12:00)
[2019-08-26] MEDS ORDERED: LABETALOL 5MG/ML, 20ML IV PRN (12:00)
[2019-08-26] MEDS ORDERED: OXYcodone 5 MG/5 ML ORAL.SOL UDC PO PRN (12:00)
[2019-08-26] MEDS ORDERED: PROMETHAZINE 25 MG/ML, 1ML IV PRN (12:00)
[2019-08-26] MEDS ORDERED: hydrALAzine 20 MG/ML, 1ML ONE (12:14)
[2019-08-26] MEDS: EZETIMIBE 10 MG TABLET PO SCH (13:12)
[2019-08-26] MEDS: RANITIDINE HCL 150 MG PO SCH (13:13)
[2019-08-26] MEDS: CLOPIDOGREL 75 MG TABLET PO SCH (13:13)
[2019-08-26] MEDS: ASPIRIN 81 MG TABLET EC PO SCH (13:13)
[2019-08-26] MEDS: METOPROLOL SUCCINATE 25 MG TAB.ER.24H PO SCH ×2 (13:13→20:10)
[2019-08-26 13:20] VITALS: BP 136/65
[2019-08-26] MEDS: SUCRALFATE 1 GM/10 ML UDC PO SCH ×2 (16:22→20:10)
[2019-08-26 18:50] VITALS: BP 139/76
[2019-08-26] MEDS: MIRTAZAPINE 15 MG TABLET PO SCH (20:11)
[2019-08-26] MEDS: OMEPRAZOLE 20 MG CAPSULE.DR PO SCH (20:11)
[2019-08-26] MEDS: TETRAHYDRZ EACHEYE SCH (21:00)
[2019-08-26] MEDS: DEXT EACHEYE SCH (21:00)
[2019-08-26] MEDS: PVP EACHEYE SCH (21:00)
[2019-08-26] MEDS: PEG EACHEYE SCH (21:00)
[2019-08-27 00:39] VITALS: BP 147/60
[2019-08-27 06:30] LABS: CALCIUM 8.3 mg/dL (8.5-10.1); CHLORIDE 112 mmol/L (98-107)
[2019-08-27 06:34] LABS: ANION GAP 5 mmol/L (5-15); CREATININE 0.69 mg/dL (0.55-1.02)
[2019-08-27 07:24] VITALS: BP 131/77
[2019-08-27] MEDS: EZETIMIBE 10 MG TABLET PO SCH (08:49)
[2019-08-27] MEDS: SUCRALFATE 1 GM/10 ML UDC PO SCH ×4 (08:49→21:13)
[2019-08-27] MEDS: ASPIRIN 81 MG TABLET EC PO SCH (08:49)
[2019-08-27] MEDS: METOPROLOL SUCCINATE 25 MG TAB.ER.24H PO SCH ×2 (08:49→21:13)
[2019-08-27] MEDS: CLOPIDOGREL 75 MG TABLET PO SCH (08:49)
[2019-08-27] MEDS: RANITIDINE HCL 150 MG PO SCH (08:50)
[2019-08-27] MEDS: D5%-0.45NACL+KCL 20MEQ 1,000 ML IV SCH (13:00)
[2019-08-27 14:00] VITALS: BP 124/67
[2019-08-27 18:57] VITALS: BP 137/76
[2019-08-27] MEDS: TETRAHYDRZ EACHEYE SCH (21:00)
[2019-08-27] MEDS: DEXT EACHEYE SCH (21:00)
[2019-08-27] MEDS: PVP EACHEYE SCH (21:00)
[2019-08-27] MEDS: OMEPRAZOLE 20 MG CAPSULE.DR PO SCH (21:00)
[2019-08-27] MEDS: PEG EACHEYE SCH (21:00)
[2019-08-27] MEDS: MIRTAZAPINE 15 MG TABLET PO SCH (21:13)
[2019-08-28 00:18] VITALS: BP 149/70
[2019-08-28] MEDS: D5%-0.45NACL+KCL 20MEQ 1,000 ML IV SCH ×2 (02:09→15:20)
[2019-08-28 06:00] LABS: ANION GAP 5 mmol/L (5-15); CALCIUM 8.8 mg/dL (8.5-10.1); CHLORIDE 111 mmol/L (98-107)
[2019-08-28 06:01] LABS: CREATININE 0.71 mg/dL (0.55-1.02)
[2019-08-28] MEDS: SUCRALFATE 1 GM/10 ML UDC PO SCH ×4 (07:00→20:28)
[2019-08-28 07:31] VITALS: BP 155/72
[2019-08-28] MEDS ORDERED: SIMETHICONE DROPS 40 MG/0.6 ML BOTTLE ONE (07:43)
[2019-08-28] MEDS: EZETIMIBE 10 MG TABLET PO SCH (08:01)
[2019-08-28] MEDS: METOPROLOL SUCCINATE 25 MG TAB.ER.24H PO SCH ×2 (08:01→20:28)
[2019-08-28] MEDS: CLOPIDOGREL 75 MG TABLET PO SCH (08:01)
[2019-08-28] MEDS: ASPIRIN 81 MG TABLET EC PO SCH (08:01)
[2019-08-28] MEDS: RANITIDINE HCL 150 MG PO SCH (08:01)
[2019-08-28] MEDS ORDERED: FENTANYL PF 100 MCG/2ML ONE (08:29)
[2019-08-28] MEDS ORDERED: MIDAZOLAM 1 MG/ML, 2ML ONE (08:29)
[2019-08-28] MEDS ORDERED: FENTANYL PF 100 MCG/2ML IV PRN (09:00)
[2019-08-28] MEDS ORDERED: MEPERIDINE/PF 25MG/ML,1ML IVPush PRN (09:00)
[2019-08-28] MEDS ORDERED: ACETAMINOPHEN 325 MG TABLET PO PRN (09:00)
[2019-08-28] MEDS ORDERED: MORPHINE SULFATE 4 MG/ML, 1ML IVPush PRN (09:00)
[2019-08-28] MEDS ORDERED: LABETALOL 5MG/ML, 20ML IV PRN (09:00)
[2019-08-28] MEDS ORDERED: hydrALAzine 20 MG/ML, 1ML IV PRN (09:00)
[2019-08-28] MEDS ORDERED: PROMETHAZINE 25 MG/ML, 1ML IV PRN (09:00)
[2019-08-28] MEDS ORDERED: ONDANSETRON 2MG/ML, 2ML IV PRN (09:00)
[2019-08-28] MEDS ORDERED: MAGNESIUM SULFATE 4 GM in SODIUM CHLORIDE 0.9% 100 ML IV ONE (09:30)
[2019-08-28] MEDS ORDERED: POTASSIUM PHOSPHATE 22 MEQ in SODIUM CHLORIDE 0.9% 500 ML IV ONE (09:30)
[2019-08-28] MEDS: OMEPRAZOLE/SOD. BICARB. PACKET PO SCH ×2 (09:30→20:28)
[2019-08-28 14:22] VITALS: BP 128/71
[2019-08-28 19:06] VITALS: BP 145/69
[2019-08-28] MEDS: MIRTAZAPINE 15 MG TABLET PO SCH (20:28)
[2019-08-28] MEDS: DEXT EACHEYE SCH (20:39)
[2019-08-28] MEDS: PVP EACHEYE SCH (20:39)
[2019-08-28] MEDS: TETRAHYDRZ EACHEYE SCH (20:39)
[2019-08-28] MEDS: PEG EACHEYE SCH (20:39)
[2019-08-29 03:42] VITALS: BP 156/76
[2019-08-29] MEDS: D5%-0.45NACL+KCL 20MEQ 1,000 ML IV SCH ×2 (04:20→18:31)
[2019-08-29 05:42] LABS: BASOPHILS # (AUTO) 0.03 x10^3/uL (0-0.1); BASOPHILS % (AUTO) 0 % (0-1); EOSINOPHILS # (AUTO) 0.38 x10^3/uL (0-0.4); EOSINOPHILS % (AUTO) 5 % (1-7); LYMPHOCYTES # (AUTO) 2.07 x10^3/uL (1-3.4); LYMPHOCYTES % (AUTO) 28 % (22-44); MD NO; MEAN CORPUSCULAR HEMOGLOBIN 30.3 pg (27.0-34.8); MEAN CORPUSCULAR HGB CONC 32.2 g/dL (32.4-35.8); MEAN PLATELET VOLUME 8.2 fL (7.4-10.4); MONOCYTES # (AUTO) 0.72 x10^3/uL (0.2-0.8); MONOCYTES % (AUTO) 10 % (2-9); NEUTROPHILS % (AUTO) 56 % (42-75); PLATELET COUNT 249 x10^3/uL (130-400); RED BLOOD COUNT 3.78 x10^6/uL (3.82-5.3); RED CELL DISTRIBUTION WIDTH 14.9 % (9.6-15.2)
[2019-08-29 05:53] LABS: ALBUMIN 2.5 g/dL (3.4-5.0); CHLORIDE 110 mmol/L (98-107)
[2019-08-29 05:57] LABS: ALANINE AMINOTRANSFERASE 14 U/L (12-78); ALKALINE PHOSPHATASE 68 U/L (45-117); ANION GAP 4 mmol/L (5-15); BILIRUBIN,TOTAL 0.3 mg/dL (0.2-1.0); CALCIUM 8.2 mg/dL (8.5-10.1); CREATININE 0.73 mg/dL (0.55-1.02); TOTAL PROTEIN 5.4 g/dL (6.4-8.2)
[2019-08-29 07:16] VITALS: BP 127/69
[2019-08-29] MEDS: SUCRALFATE 1 GM/10 ML UDC PO SCH ×4 (07:42→20:06)
[2019-08-29] MEDS: ASPIRIN 81 MG TABLET EC PO SCH (08:58)
[2019-08-29] MEDS: EZETIMIBE 10 MG TABLET PO SCH (08:59)
[2019-08-29] MEDS: METOPROLOL SUCCINATE 25 MG TAB.ER.24H PO SCH ×2 (08:59→21:25)
[2019-08-29] MEDS: CLOPIDOGREL 75 MG TABLET PO SCH (08:59)
[2019-08-29] MEDS: RANITIDINE HCL 150 MG PO SCH (09:00)
[2019-08-29] MEDS: OMEPRAZOLE/SOD. BICARB. PACKET PO SCH ×2 (09:00→20:06)
[2019-08-29 14:35] VITALS: BP 120/69
[2019-08-29 19:40] VITALS: BP 173/73
[2019-08-29] MEDS: TETRAHYDRZ EACHEYE SCH (20:05)
[2019-08-29] MEDS: PVP EACHEYE SCH (20:05)
[2019-08-29] MEDS: PEG EACHEYE SCH (20:05)
[2019-08-29] MEDS: DEXT EACHEYE SCH (20:05)
[2019-08-29] MEDS: MIRTAZAPINE 15 MG TABLET PO SCH (20:05)
[2019-08-29 21:09] VITALS: BP 133/71
[2019-08-30 03:59] VITALS: BP 128/65
[2019-08-30 04:43] LABS: BASOPHILS # (AUTO) 0.05 x10^3/uL (0-0.1); BASOPHILS % (AUTO) 1 % (0-1); EOSINOPHILS # (AUTO) 0.19 x10^3/uL (0-0.4); EOSINOPHILS % (AUTO) 3 % (1-7); LYMPHOCYTES # (AUTO) 2.07 x10^3/uL (1-3.4); LYMPHOCYTES % (AUTO) 28 % (22-44); MD NO; MEAN CORPUSCULAR HEMOGLOBIN 30.5 pg (27.0-34.8); MEAN CORPUSCULAR HGB CONC 32.3 g/dL (32.4-35.8); MEAN CORPUSCULAR VOLUME 94.3 fL (80-100); MEAN PLATELET VOLUME 8.4 fL (7.4-10.4); MONOCYTES # (AUTO) 0.73 x10^3/uL (0.2-0.8); MONOCYTES % (AUTO) 10 % (2-9); NEUTROPHILS # (AUTO) 4.33 x10^3/uL (1.8-6.8); NEUTROPHILS % (AUTO) 59 % (42-75); PLATELET COUNT 282 x10^3/uL (130-400); RED BLOOD COUNT 3.85 x10^6/uL (3.82-5.3); RED CELL DISTRIBUTION WIDTH 14.5 % (9.6-15.2)
[2019-08-30 04:56] LABS: ANION GAP 4 mmol/L (5-15); CALCIUM 8.4 mg/dL (8.5-10.1); CHLORIDE 110 mmol/L (98-107)
[2019-08-30 06:36] VITALS: BP 147/60
[2019-08-30] MEDS: D5%-0.45NACL+KCL 20MEQ 1,000 ML IV SCH (07:20)
[2019-08-30] MEDS ORDERED: OMEP1PAC PO (07:55)
[2019-08-30] MEDS ORDERED: SUCR1ORA5 PO (07:55)
[2019-08-30] MEDS: SUCRALFATE 1 GM/10 ML UDC PO SCH ×2 (08:05→11:59)
[2019-08-30] MEDS: EZETIMIBE 10 MG TABLET PO SCH (08:06)
[2019-08-30] MEDS: CLOPIDOGREL 75 MG TABLET PO SCH (08:06)
[2019-08-30] MEDS: ASPIRIN 81 MG TABLET EC PO SCH (08:06)
[2019-08-30] MEDS: METOPROLOL SUCCINATE 25 MG TAB.ER.24H PO SCH (08:06)
[2019-08-30] MEDS: OMEPRAZOLE/SOD. BICARB. PACKET PO SCH (08:07)
[2019-08-30] MEDS ORDERED: CLOP75TA PO (08:09)
[2019-08-30] MEDS ORDERED: EZET10TA70 PO (08:09)
[2019-08-30] MEDS ORDERED: ASPI-496 PO (08:09)
[2019-08-30] MEDS ORDERED: METO-282 PO ×2 (08:09)
[2019-08-30] MEDS ORDERED: METO25TA35 PO (08:10)
== END 2019-08-30 12:27 | disposition home or self-care (01) | DRG 392 ==
LOC: ED 15:52 → EDIP 17:17 → 3N 18:26 → DCLOUNGE 08-30 12:11
PROVIDERS: ADMIT Hospitalist; ATTEND Internal Medicine
PROC: 0D738ZZ Dilation of Lower Esophagus, Via Natural or Artificial Opening Endoscopic (ICD-10-PCS; principal; 2019-08-26 12:45)
PROC: 0DC38ZZ Extirpation of Matter from Lower Esophagus, Via Natural or Artificial Opening Endoscopic (ICD-10-PCS; 2019-08-28)
PROC: 0D718ZZ Dilation of Upper Esophagus, Via Natural or Artificial Opening Endoscopic (ICD-10-PCS; 2019-08-28)
DX: K22.2 Esophageal obstruction (principal); I10 Essential (primary) hypertension; D63.8 Anemia in other chronic diseases classified elsewhere; E11.51 Type 2 diabetes mellitus with diabetic peripheral angiopathy without gangrene; E78.5 Hyperlipidemia, unspecified; E83.42 Hypomagnesemia; F41.9 Anxiety disorder, unspecified; G89.29 Other chronic pain; I25.10 Atherosclerotic heart disease of native coronary artery without angina pectoris; J44.9 Chronic obstructive pulmonary disease, unspecified; K22.0 Achalasia of cardia; L90.0 Lichen sclerosus et atrophicus; R13.14 Dysphagia, pharyngoesophageal phase; M19.90 Unspecified osteoarthritis, unspecified site; Z66 Do not resuscitate; X58.XXXA Exposure to other specified factors, initial encounter; Z79.02 Long term (current) use of antithrombotics/antiplatelets; I25.2 Old myocardial infarction; Z80.1 Family history of malignant neoplasm of trachea, bronchus and lung; Z82.5 Family history of asthma and other chronic lower respiratory diseases; Z83.3 Family history of diabetes mellitus; Z86.73 Personal history of transient ischemic attack (TIA), and cerebral infarction without residual deficits; Z87.891 Personal history of nicotine dependence; Z88.8 Allergy status to other drugs, medicaments and biological substances; Z90.710 Acquired absence of both cervix and uterus; Z95.1 Presence of aortocoronary bypass graft; Z98.1 Arthrodesis status; Z79.899 Other long term (current) drug therapy; Y93.89 Activity, other specified; Y92.89 Other specified places as the place of occurrence of the external cause; Y99.8 Other external cause status; Z88.2 Allergy status to sulfonamides; Z88.6 Allergy status to analgesic agent; T18.198A Other foreign object in esophagus causing other injury, initial encounter
CPT/HCPCS: 36415; 74220; 80048; 80053; 83690; 83735; 84100; 84484; 85014; 85018; 85025; 93005; 99285; G0378; J2250; J2405; J2704; J3010; J3475; Q9967; C1725; J0360; J3480; J7040

== ENCOUNTER 2019-09-08 05:46 | Day surgery (SDC) | payer MEDICARE ==
[~2019-09-08] VITALS: Ht 154.9 cm; Wt 47.4 kg
[~2019-09-08 05:46] MED LIST changes: +EZET10TA70 PO; +METO25TA35 PO; +OMEP1PAC PO; +RANI150C PO; +SUCR1ORA5 PO
[2019-09-08] MEDS ORDERED: LACTATED RINGERS 1,000 ML IV SCH (06:47)
[2019-09-08 06:51] VITALS: BP 148/71
[2019-09-08] MEDS ORDERED: PLEASE ENTER HEIGHT AND WEIGHT MC SCH (07:00)
[2019-09-08] MEDS ORDERED: PROPOFOL 50 ML ONE (07:20)
[2019-09-08] MEDS ORDERED: PROPOFOL 10 MG/ML, 20ML ONE (07:21)
[2019-09-08] MEDS ORDERED: EPHEDRINE 50 MG/ML, 1ML IVPush PRN (07:30)
[2019-09-08] MEDS ORDERED: MEPERIDINE/PF 25MG/ML,1ML IVPush PRN (07:30)
[2019-09-08] MEDS ORDERED: ACETAMINOPHEN 325 MG TABLET PO PRN (07:30)
[2019-09-08] MEDS ORDERED: KETOROLAC 30 MG/1 ML IV PRN (07:30)
[2019-09-08] MEDS ORDERED: ONDANSETRON 2MG/ML, 2ML IV PRN (07:30)
[2019-09-08] MEDS ORDERED: PROMETHAZINE 25 MG/ML, 1ML IV PRN (07:30)
[2019-09-08] MEDS ORDERED: hydrALAzine 20 MG/ML, 1ML IV PRN (07:30)
[2019-09-08] MEDS ORDERED: LABETALOL 5MG/ML, 20ML IV PRN (07:30)
== END 2019-09-08 09:20 | disposition home or self-care (01) ==
LOC: OUT 05:46
PROVIDERS: ATTEND Internal Medicine Gastroenterology
DX: K22.2 Esophageal obstruction (principal); R13.19 Other dysphagia; I10 Essential (primary) hypertension; E11.9 Type 2 diabetes mellitus without complications; I48.91 Unspecified atrial fibrillation; I25.10 Atherosclerotic heart disease of native coronary artery without angina pectoris; I25.2 Old myocardial infarction; E78.5 Hyperlipidemia, unspecified; J44.9 Chronic obstructive pulmonary disease, unspecified; I73.9 Peripheral vascular disease, unspecified; G89.29 Other chronic pain; M54.9 Dorsalgia, unspecified; Z86.73 Personal history of transient ischemic attack (TIA), and cerebral infarction without residual deficits; Z79.82 Long term (current) use of aspirin; Z79.899 Other long term (current) drug therapy; Z87.891 Personal history of nicotine dependence; Z88.2 Allergy status to sulfonamides; Z88.5 Allergy status to narcotic agent; Z88.8 Allergy status to other drugs, medicaments and biological substances; Z98.1 Arthrodesis status; Z90.49 Acquired absence of other specified parts of digestive tract; Z90.710 Acquired absence of both cervix and uterus; Z95.1 Presence of aortocoronary bypass graft; Z98.890 Other specified postprocedural states; Z80.1 Family history of malignant neoplasm of trachea, bronchus and lung; Z80.42 Family history of malignant neoplasm of prostate; Z83.6 Family history of other diseases of the respiratory system
CPT/HCPCS: 43249; 82962; C1725; J2704; J7120

== ENCOUNTER 2019-09-22 10:04 | Day surgery (SDC) | payer MEDICARE ==
[~2019-09-22] VITALS: Ht 154.9 cm; Wt 45.0 kg
[2019-09-22] MEDS ORDERED: LACTATED RINGERS 1,000 ML IV SCH (10:43)
[2019-09-22] MEDS ORDERED: LIDOCAINE-MPF 1%, 2ML INFIL ONE (11:00)
[2019-09-22 11:07] VITALS: BP 128/78
[2019-09-22] MEDS ORDERED: INSU100V8 SQ (11:23)
[2019-09-22] MEDS ORDERED: ASPI-496 PO (11:35)
[2019-09-22] MEDS ORDERED: CLOP75TA PO (11:35)
[2019-09-22] MEDS ORDERED: EZET10TA70 PO (11:35)
[2019-09-22] MEDS ORDERED: NITR0.4T28 SL (11:35)
[2019-09-22] MEDS ORDERED: METO25TA35 PO (11:35)
[2019-09-22] MEDS ORDERED: TRAM50TA2 PO (11:35)
[2019-09-22] MEDS ORDERED: PROPOFOL 10 MG/ML, 50ML ONE (12:11)
[2019-09-22] MEDS ORDERED: METOPROLOL 1 MG/ML, 5ML IV PRN (12:30)
[2019-09-22] MEDS ORDERED: hydrALAzine 20 MG/ML, 1ML IV PRN (12:30)
[2019-09-22] MEDS ORDERED: FENTANYL PF 100 MCG/2ML IV PRN (12:30)
[2019-09-22] MEDS ORDERED: ONDANSETRON 2MG/ML, 2ML IV PRN (12:30)
[2019-09-22] MEDS ORDERED: ALBUTEROL/IPRATROPIUM 2.5MG/0.5MG, 3 ML NPPB PRN (12:30)
[2019-09-22] MEDS ORDERED: OXYcodone 5 MG/5 ML ORAL.SOL UDC PO PRN (12:30)
[2019-09-22] MEDS ORDERED: ACETAMINOPHEN 325 MG TABLET PO PRN (12:30)
== END 2019-09-22 14:50 | disposition home or self-care (01) ==
LOC: OUT 10:04
PROVIDERS: ATTEND Internal Medicine Gastroenterology
DX: K22.2 Esophageal obstruction (principal); K29.80 Duodenitis without bleeding; K21.9 Gastro-esophageal reflux disease without esophagitis; E78.5 Hyperlipidemia, unspecified; E11.9 Type 2 diabetes mellitus without complications; I25.10 Atherosclerotic heart disease of native coronary artery without angina pectoris; I10 Essential (primary) hypertension; J44.9 Chronic obstructive pulmonary disease, unspecified; M19.90 Unspecified osteoarthritis, unspecified site; F32.9 Major depressive disorder, single episode, unspecified; Z79.4 Long term (current) use of insulin; Z79.82 Long term (current) use of aspirin; Z79.02 Long term (current) use of antithrombotics/antiplatelets; Z79.899 Other long term (current) drug therapy; Z87.891 Personal history of nicotine dependence; Z88.2 Allergy status to sulfonamides; Z88.8 Allergy status to other drugs, medicaments and biological substances; Z86.73 Personal history of transient ischemic attack (TIA), and cerebral infarction without residual deficits; Z95.1 Presence of aortocoronary bypass graft; Z86.010 Personal history of colon polyps; Z90.710 Acquired absence of both cervix and uterus; Z90.49 Acquired absence of other specified parts of digestive tract; Z98.890 Other specified postprocedural states
CPT/HCPCS: 43249; 82962; C1725; J2704

== ENCOUNTER 2019-09-29 12:57 | Emergency (ER) | payer MEDICARE ==
[~2019-09-29] VITALS: Ht 154.9 cm; Wt 44.7 kg
[2019-09-29 13:16] VITALS: BP 147/58
--- NOTE | 2019-09-29 13:23 | NUR ---
Break RN: MD Houser at bedside to assess pt, consult placed to MD Jarquin (GI)
[2019-09-29] MEDS ORDERED: SODIUM CHLORIDE FLUSH 10ML SYR IVF ONE (13:30)
[2019-09-29] MEDS ORDERED: FAMOTIDINE 20 MG/2 ML IV ONE (13:30)
[2019-09-29 13:56] LABS: BASOPHILS # (AUTO) 0.03 x10^3/uL (0-0.1); BASOPHILS % (AUTO) 0 % (0-1); EOSINOPHILS # (AUTO) 0.06 x10^3/uL (0-0.4); EOSINOPHILS % (AUTO) 1 % (1-7); LYMPHOCYTES # (AUTO) 2.43 x10^3/uL (1-3.4); LYMPHOCYTES % (AUTO) 31 % (22-44); MD NO; MEAN CORPUSCULAR HEMOGLOBIN 29.3 pg (27.0-34.8); MEAN CORPUSCULAR HGB CONC 32.3 g/dL (32.4-35.8); MEAN CORPUSCULAR VOLUME 90.6 fL (80-100); MEAN PLATELET VOLUME 8.2 fL (7.4-10.4); MONOCYTES # (AUTO) 0.74 x10^3/uL (0.2-0.8); MONOCYTES % (AUTO) 9 % (2-9); NEUTROPHILS # (AUTO) 4.64 x10^3/uL (1.8-6.8); NEUTROPHILS % (AUTO) 59 % (42-75); PLATELET COUNT 304 x10^3/uL (130-400); RED BLOOD COUNT 4.76 x10^6/uL (3.82-5.3); RED CELL DISTRIBUTION WIDTH 14.5 % (9.6-15.2)
--- NOTE | 2019-09-29 13:57 | NUR ---
OFF FLOOR TO XRAY
[2019-09-29] MEDS ORDERED: OMNIPAQUE 350 MG/ML, 150 ML BOTTLE ONE (14:00)
[2019-09-29 14:09] LABS: ALANINE AMINOTRANSFERASE 28 U/L (12-78); ALBUMIN 3.5 g/dL (3.4-5.0); ANION GAP 8 mmol/L (5-15); CALCIUM 9.9 mg/dL (8.5-10.1); CHLORIDE 100 mmol/L (98-107); CREATININE 0.81 mg/dL (0.55-1.02)
[2019-09-29 14:13] LABS: ALKALINE PHOSPHATASE 79 U/L (45-117); BILIRUBIN,TOTAL 0.5 mg/dL (0.2-1.0); TOTAL PROTEIN 7.2 g/dL (6.4-8.2); TROPONIN I < 0.015 ng/mL (0.000-0.045)
[2019-09-29] MEDS ORDERED: FAMOTIDINE 20 MG/2 ML ONE (14:21)
--- NOTE | 2019-09-29 14:42 | NUR ---
MEDICATED NOTED ON MAR ON RETURN FROM XRAY.
== END 2019-09-29 15:58 | disposition home or self-care (01) ==
LOC: ED 14:40
DX: R13.14 Dysphagia, pharyngoesophageal phase (principal); R07.89 Other chest pain; R11.10 Vomiting, unspecified; I10 Essential (primary) hypertension; E11.9 Type 2 diabetes mellitus without complications; Z86.73 Personal history of transient ischemic attack (TIA), and cerebral infarction without residual deficits; Z95.1 Presence of aortocoronary bypass graft; Z90.49 Acquired absence of other specified parts of digestive tract; Z90.710 Acquired absence of both cervix and uterus; Z88.5 Allergy status to narcotic agent
CPT/HCPCS: 36415; 71045; 74220; 80053; 84484; 85025; 93005; 96374; 99284; J3490; Q9967

== ENCOUNTER 2019-12-10 12:21 | Outpatient (CLI) | payer MEDICARE, OTHER ==
[2019-12-10 16:17] LABS: ANION GAP 4 mmol/L (5-15); CALCIUM 8.8 mg/dL (8.5-10.1); CHLORIDE 105 mmol/L (98-107); CREATININE 0.88 mg/dL (0.55-1.02)
== END 2019-12-10 23:59 | disposition home or self-care (01) ==
LOC: CFH 12:21
PROVIDERS: ATTEND Physician Assistant Medical
DX: I12.9 Hypertensive chronic kidney disease with stage 1 through stage 4 chronic kidney disease, or unspecified chronic kidney disease (principal); E11.22 Type 2 diabetes mellitus with diabetic chronic kidney disease; N18.3 Chronic kidney disease, stage 3 (moderate); E78.2 Mixed hyperlipidemia
CPT/HCPCS: 36415; 80048

== ENCOUNTER 2019-12-29 04:55 | Observation (INO) | payer MEDICARE ==
[~2019-12-29] VITALS: Ht 154.9 cm; Wt 45.9 kg
--- NOTE | 2019-12-29 05:21 | NUR ---
PT BIB EMS FROM [facility] WITH REPORT OF ALTERED MENTAL STATUS, REPORTS PT WAS YELLING FOR APPX 1 HR PRIOR TO EMS CALLED. PT BS 39 UPON EMS ARRIVAL, EMS PROVIDED 100ML OF D10, BS GARCÍA TO 69, SECOND 100ML OF D10 ADMINISTERED. PT 94 UPON ARRIVAL. PT AOX0 UPON ARRIVAL, ALERT TO TOUCH. PT TEMP 93.8 UPON ARRIVAL TO ED, KELLEE HUGGER IN PLACE.
--- NOTE | 2019-12-29 05:35 | NUR ---
ERP IN ROOM TO EVAL PT. PT AOX3 DID NOT KNOW EVENTS LEADING TO ARRIVAL TO ED.
[2019-12-29 05:38] LABS: BASOPHILS # (AUTO) 0.01 x10^3/uL (0-0.1); BASOPHILS % (AUTO) 0 % (0-1); EOSINOPHILS # (AUTO) 0.07 x10^3/uL (0-0.4); EOSINOPHILS % (AUTO) 1 % (1-7); LYMPHOCYTES # (AUTO) 1.59 x10^3/uL (1-3.4); LYMPHOCYTES % (AUTO) 12 % (22-44); MD NO; MEAN CORPUSCULAR HEMOGLOBIN 30.5 pg (27.0-34.8); MEAN CORPUSCULAR HGB CONC 32.9 g/dL (32.4-35.8); MEAN CORPUSCULAR VOLUME 92.5 fL (80-100); MONOCYTES # (AUTO) 0.71 x10^3/uL (0.2-0.8); MONOCYTES % (AUTO) 6 % (2-9); NEUTROPHILS # (AUTO) 10.43 x10^3/uL (1.8-6.8); NEUTROPHILS % (AUTO) 81 % (42-75); PLATELET COUNT 315 x10^3/uL (130-400); RED BLOOD COUNT 4.98 x10^6/uL (3.82-5.3); RED CELL DISTRIBUTION WIDTH 15.3 % (9.6-15.2)
[2019-12-29 05:47] LABS: ANION GAP 7 mmol/L (5-15); CALCIUM 8.7 mg/dL (8.5-10.1); CHLORIDE 106 mmol/L (98-107); CREATININE 0.81 mg/dL (0.55-1.02)
[2019-12-29 05:53] LABS: CULTURE INDICATED? YES; MICROSCOPIC INDICATED
[2019-12-29] MEDS ORDERED: D5%-0.45% NACL 1,000 ML IV SCH (06:30)
--- NOTE | 2019-12-29 06:43 | NUR ---
PT BS DROPPED TO 64. NOTIFIED, MEDS ORDERED AND GIVEN PER MAR. PT FAMILY AT BS, UPDATED ON POC. MONITORING IN PLACE, CALL LIGHT IN REACH. ALL SAFETY MEASURES IN PLACE/
--- NOTE | 2019-12-29 06:58 | NUR ---
CONTACT DAUGHTER SHARON [phone]
--- NOTE | 2019-12-29 07:00 | NUR ---
REPORT RECEIVED FROM CESAR LIMA.
[2019-12-29] MEDS ORDERED: LISI-170 PO (07:12)
[2019-12-29] MEDS ORDERED: SUCR1TAB PO (07:13)
[2019-12-29] MEDS ORDERED: VENL37.511 PO (07:14)
[2019-12-29] MEDS ORDERED: OMEP-110 PO (07:15)
[2019-12-29] MEDS ORDERED: VITAMIN D3 (07:16)
[2019-12-29] MEDS ORDERED: ASPI-614 PO (07:16)
[2019-12-29] MEDS ORDERED: ONDA4TAB13 SL (07:17)
[2019-12-29] MEDS ORDERED: IRON (07:18)
[2019-12-29] MEDS ORDERED: FLUT1BLS3 IH (07:19)
--- NOTE | 2019-12-29 07:26 | NUR ---
BS 113 AT THIS TIME.
--- NOTE | 2019-12-29 07:30 | NUR ---
BP 95/41 AT THIS TIME. EDMD NOTIFIED.
[2019-12-29] MEDS ORDERED: D5%-0.45NACL+KCL 20MEQ 1,000 ML IV SCH (08:21)
--- NOTE | 2019-12-29 08:25 | NUR ---
BS 163 AT THIS TIME. PT'S AOX4. RESPS EVEN AND UNLABORED. ALL MONITORS IN PLACE. CALL LIGHT WITHIN REACH.
[2019-12-29] MEDS ORDERED: hydrALAzine 20 MG/ML, 1ML IVPush PRN (08:30)
[2019-12-29] MEDS ORDERED: ONDANSETRON 2MG/ML, 2ML IVPush PRN (08:30)
[2019-12-29] MEDS ORDERED: LABETALOL 5MG/ML, 20ML IVPush PRN (08:30)
[2019-12-29] MEDS ORDERED: DEXTROSE 50%, 50ML SYRINGE IVPush PRN (08:30)
[2019-12-29] MEDS ORDERED: GLUCAGON 1 MG IM PRN (08:30)
[2019-12-29] MEDS ORDERED: DEXTROSE 4 GM TAB.CHEW PO PRN (08:30)
[2019-12-29] MEDS ORDERED: ACETAMINOPHEN 325 MG TABLET PO PRN (08:30)
[2019-12-29] MEDS ORDERED: ASPIRIN 81 MG TABLET CHEW ONE (08:37)
[2019-12-29] MEDS ORDERED: OMEPRAZOLE 20 MG CAPSULE.DR ONE (08:37)
[2019-12-29] MEDS ORDERED: HEPARIN 5,000 UNITS/ML, 1ML ONE (08:37)
[2019-12-29] MEDS: ASPIRIN 81 MG TABLET CHEW PO SCH ×2 (08:39→11:01)
[2019-12-29] MEDS: HEPARIN 5,000 UNITS/ML, 1ML SQ SCH ×2 (08:39→17:46)
[2019-12-29] MEDS: OMEPRAZOLE 20 MG CAPSULE.DR PO SCH ×2 (08:39→11:01)
--- NOTE | 2019-12-29 08:44 | NUR ---
PT MEDICATED PER EMAR. PT TOLERATED WELL.
--- NOTE | 2019-12-29 08:45 | NUR ---
pt refused po meds at this time. pt states" i don't have dentures now. i can't swallow."
--- NOTE | 2019-12-29 08:52 | NUR ---
report given to catalina king. all questions answered.
[2019-12-29] MEDS ORDERED: METOPROLOL TARTRATE 25 MG TAB PO SCH (09:00)
[2019-12-29] MEDS ORDERED: LISINOPRIL 20 MG TABLET PO SCH (09:00)
[2019-12-29] MEDS: SUCRALFATE 1 GM TABLET PO SCH (09:00)
[2019-12-29] MEDS: SODIUM CHLORIDE FLUSH 10ML SYR IVF SCH ×2 (09:00→21:00)
[2019-12-29 09:47] VITALS: BP 110/55
[2019-12-29] MEDS: CEFTRIAXONE PMX 1GM/50ML 50 ML IV SCH (10:59)
[2019-12-29] MEDS: INSULIN LISPRO 100 UNITS/ML, PEN SQ-INSULIN SCH ×3 (11:00→21:00)
[2019-12-29] MEDS: VENLAFAXINE XR 37.5MG CAP.ER.24H PO SCH (11:00)
[2019-12-29] MEDS: EZETIMIBE 10 MG TABLET PO SCH (11:00)
--- NOTE | 2019-12-29 11:34 | NUR ---
REC RETURN TO HOME AT DC Addendum: 12/29/19 at [address] Amended: Links added.
[2019-12-29 12:43] VITALS: BP 115/54
[2019-12-29 19:55] VITALS: BP 143/78
[2019-12-30] MEDS: HEPARIN 5,000 UNITS/ML, 1ML SQ SCH ×3 (00:37→16:30)
[2019-12-30 02:43] VITALS: BP 152/69
[2019-12-30] MEDS ORDERED: METOPROLOL TARTRATE 25 MG TAB PO SCH (06:30)
[2019-12-30] MEDS: INSULIN LISPRO 100 UNITS/ML, PEN SQ-INSULIN SCH ×3 (07:00→16:00)
[2019-12-30 07:10] VITALS: BP 149/72
[2019-12-30 07:13] LABS: ALBUMIN 2.5 g/dL (3.4-5.0); ANION GAP 6 mmol/L (5-15); BASOPHILS # (AUTO) 0.04 x10^3/uL (0-0.1); BASOPHILS % (AUTO) 1 % (0-1); CALCIUM 8.3 mg/dL (8.5-10.1); CHLORIDE 110 mmol/L (98-107); EOSINOPHILS # (AUTO) 0.17 x10^3/uL (0-0.4); EOSINOPHILS % (AUTO) 2 % (1-7); LYMPHOCYTES # (AUTO) 2.81 x10^3/uL (1-3.4); LYMPHOCYTES % (AUTO) 37 % (22-44); MD NO; MEAN CORPUSCULAR HEMOGLOBIN 29.8 pg (27.0-34.8); MEAN CORPUSCULAR HGB CONC 32.5 g/dL (32.4-35.8); MEAN CORPUSCULAR VOLUME 91.8 fL (80-100); MEAN PLATELET VOLUME 8.8 fL (7.4-10.4); MONOCYTES # (AUTO) 0.52 x10^3/uL (0.2-0.8); MONOCYTES % (AUTO) 7 % (2-9); NEUTROPHILS # (AUTO) 4.12 x10^3/uL (1.8-6.8); NEUTROPHILS % (AUTO) 54 % (42-75); PLATELET COUNT 255 x10^3/uL (130-400); RED BLOOD COUNT 4.42 x10^6/uL (3.82-5.3)
[2019-12-30 07:16] LABS: ALANINE AMINOTRANSFERASE 40 U/L (12-78); ALKALINE PHOSPHATASE 68 U/L (45-117); BILIRUBIN,TOTAL 0.3 mg/dL (0.2-1.0); CREATININE 0.74 mg/dL (0.55-1.02); TOTAL PROTEIN 5.6 g/dL (6.4-8.2)
[2019-12-30] MEDS ORDERED: LISINOPRIL 20 MG TABLET PO SCH (09:00)
[2019-12-30] MEDS: SUCRALFATE 1 GM TABLET PO SCH (09:00)
[2019-12-30] MEDS: EZETIMIBE 10 MG TABLET PO SCH (09:22)
[2019-12-30] MEDS: ASPIRIN 81 MG TABLET CHEW PO SCH (09:22)
[2019-12-30] MEDS: VENLAFAXINE XR 37.5MG CAP.ER.24H PO SCH (09:22)
[2019-12-30] MEDS: OMEPRAZOLE 20 MG CAPSULE.DR PO SCH (09:22)
[2019-12-30] MEDS: SODIUM CHLORIDE FLUSH 10ML SYR IVF SCH (09:32)
[2019-12-30] MEDS ORDERED: D5%-0.45NACL+KCL 20MEQ 1,000 ML IV SCH (10:00)
[2019-12-30] MEDS: CEFTRIAXONE PMX 1GM/50ML 50 ML IV SCH (10:33)
[2019-12-30 13:07] VITALS: BP 128/61
[2019-12-30] MEDS ORDERED: DIAZ5TAB4 PO (14:49)
[2019-12-30] MEDS ORDERED: [UNRECOGNIZED DRUG - CODE] PO (14:49)
[2019-12-30] MEDS ORDERED: NITR0.4T28 SL (14:49)
[2019-12-30] MEDS ORDERED: MIRT-34 PO (14:49)
== END 2019-12-30 17:38 | disposition home or self-care (01) ==
LOC: EDBD 04:55 → MERGE 04:55 → ED 08:21 → EDIP 08:44 → INTOOBSV 08:44 → 4NE 09:40 → 4EST 15:06
PROVIDERS: ADMIT Internal Medicine; ATTEND Family Medicine
DX: E11.649 Type 2 diabetes mellitus with hypoglycemia without coma (principal); E11.51 Type 2 diabetes mellitus with diabetic peripheral angiopathy without gangrene; G93.41 Metabolic encephalopathy; R13.10 Dysphagia, unspecified; D72.829 Elevated white blood cell count, unspecified; E78.5 Hyperlipidemia, unspecified; I25.10 Atherosclerotic heart disease of native coronary artery without angina pectoris; I10 Essential (primary) hypertension; J44.9 Chronic obstructive pulmonary disease, unspecified; R13.14 Dysphagia, pharyngoesophageal phase; M19.90 Unspecified osteoarthritis, unspecified site; Z86.73 Personal history of transient ischemic attack (TIA), and cerebral infarction without residual deficits; Z88.2 Allergy status to sulfonamides; Z88.8 Allergy status to other drugs, medicaments and biological substances; Z87.891 Personal history of nicotine dependence; Z98.1 Arthrodesis status; Z79.4 Long term (current) use of insulin; Z66 Do not resuscitate; Z96.652 Presence of left artificial knee joint; Z79.82 Long term (current) use of aspirin; Z79.899 Other long term (current) drug therapy
CPT/HCPCS: 36415; 80048; 80053; 81001; 82040; 82962; 83036; 83605; 85025; 87086; 87147; 92610; 93005; 96365; 96366; 96367; 96372; 97162; 99285; G0378; J0696; J1644; J1815

== ENCOUNTER → 2020-03-07 | Outpatient (CLI) | payer MEDICARE ==
[~2020-03-07] MED LIST changes: +ASPI-614 PO; +DIAZ5TAB4 PO; +FLUT1BLS3 IH; +HYDR-3246 PO; -HYDR-36 PO; +IRON; +ONDA4TAB13 SL; +REGADENOSON 0.4 MG/5 ML SYRINGE ONE; +SUCR1TAB PO; +VENL37.511 PO; +VITAMIN D3; +[UNRECOGNIZED DRUG - CODE] PO
== END | disposition home or self-care (01) ==
LOC: CFH 11:53
PROVIDERS: ATTEND Physician Assistant Medical
DX: I25.9 Chronic ischemic heart disease, unspecified (principal); I10 Essential (primary) hypertension
CPT/HCPCS: 78452; 93017; A9502; J2785

== ENCOUNTER 2020-04-07 07:18 | Observation (INO) | payer MEDICARE ==
[~2020-04-07] VITALS: Ht 154.9 cm; Wt 51.8 kg
[~2020-04-07 07:18] MED LIST changes: -REGADENOSON 0.4 MG/5 ML SYRINGE ONE
[2020-04-07] MEDS ORDERED: SODIUM CHLORIDE 0.9% 1,000 ML IV SCH ×2 (07:41→10:47)
[2020-04-07] MEDS ORDERED: DIPHENHYDRAMINE 50 MG/ML, 1ML IVPush ONE (08:00)
[2020-04-07] MEDS ORDERED: ISOS30TA8 PO (08:16)
[2020-04-07] MEDS ORDERED: TIMO5DRO33 OP (08:16)
[2020-04-07] MEDS ORDERED: TRIAMCINOLONE TP (08:16)
[2020-04-07] MEDS ORDERED: DORZ10DR27 OP (08:16)
[2020-04-07] MEDS ORDERED: CHOL10003 PO (08:16)
[2020-04-07] MEDS ORDERED: SUCR1TAB PO (08:16)
[2020-04-07] MEDS ORDERED: VENL75CA6 PO (08:17)
[2020-04-07 08:18] VITALS: BP 180/68
[2020-04-07 08:32] LABS: BASOPHILS # (AUTO) 0.03 x10^3/uL (0-0.1); BASOPHILS % (AUTO) 0 % (0-1); EOSINOPHILS # (AUTO) 0.23 x10^3/uL (0-0.4); EOSINOPHILS % (AUTO) 2 % (1-7); LYMPHOCYTES # (AUTO) 1.84 x10^3/uL (1-3.4); LYMPHOCYTES % (AUTO) 19 % (22-44); MD NO; MEAN CORPUSCULAR HEMOGLOBIN 31.4 pg (27.0-34.8); MEAN CORPUSCULAR HGB CONC 32.7 g/dL (32.4-35.8); MEAN CORPUSCULAR VOLUME 96.1 fL (80-100); MEAN PLATELET VOLUME 8.5 fL (7.4-10.4); MONOCYTES % (AUTO) 7 % (2-9); NEUTROPHILS # (AUTO) 6.85 x10^3/uL (1.8-6.8); NEUTROPHILS % (AUTO) 71 % (42-75); PLATELET COUNT 248 x10^3/uL (130-400); RED BLOOD COUNT 4.19 x10^6/uL (3.82-5.3); RED CELL DISTRIBUTION WIDTH 13.1 % (9.6-15.2)
[2020-04-07 08:41] LABS: ANION GAP 4 mmol/L (5-15); CALCIUM 8.9 mg/dL (8.5-10.1); CHLORIDE 106 mmol/L (98-107); CREATININE 0.85 mg/dL (0.55-1.02)
[2020-04-07 08:46] LABS: INTERNATIONAL NORMALIZED RATIO 1.01 (0.93-1.1); PROTHROMBIN TIME 10.7 Seconds (9.6-11.5)
[2020-04-07] MEDS ORDERED: MIDAZOLAM 1 MG/ML, 5ML ONE (09:19)
[2020-04-07] MEDS ORDERED: BIVALIRUDIN 250 MG ONE (09:20)
[2020-04-07] MEDS ORDERED: TICAGRELOR 90 MG TABLET ONE (09:20)
[2020-04-07] MEDS ORDERED: HEPARIN 1,000 UNITS/ML, 10ML ONE (09:20)
[2020-04-07] MEDS ORDERED: VERAPAMIL 2.5 MG/ML, 2ML ONE (09:20)
[2020-04-07] MEDS ORDERED: FENTANYL PF 100 MCG/2ML ONE (09:20)
[2020-04-07] MEDS ORDERED: LIDOCAINE-MPF 1%, 5ML ONE (09:20)
[2020-04-07] MEDS ORDERED: LIDOCAINE 1%, 20ML ONE (09:23)
[2020-04-07] MEDS ORDERED: TRIAMCINOLONE TP PRN (11:00)
[2020-04-07] MEDS ORDERED: TEMPLATE NON-FORMULARY MED. (Fluticasone/Umeclidin/Vilanter (Trelegy Ellipta 100-62.5-25 IH PRN (11:00)
[2020-04-07] MEDS ORDERED: SUCRALFATE 1 GM TABLET PO SCH (11:00)
[2020-04-07] MEDS ORDERED: ZOLPIDEM 5MG TABLET PO PRN (11:00)
[2020-04-07] MEDS ORDERED: MORPHINE SULFATE 4 MG/ML, 1ML ONE ×2 (11:19→14:57)
[2020-04-07] MEDS: morphine SULFATE 10 MG/ML, 1ML IVPush PRN ×4 (11:27→13:25)
[2020-04-07] MEDS ORDERED: METOPROLOL TARTRATE 25 MG TAB ONE (12:26)
[2020-04-07] MEDS ORDERED: LABETALOL 5MG/ML, 20ML ONE (13:17)
[2020-04-07] MEDS ORDERED: LABETALOL 5MG/ML, 20ML IVPush ONE (13:30)
[2020-04-07] MEDS ORDERED: MORPHINE SULFATE 4 MG/ML, 1ML IVPush PRN (14:00)
[2020-04-07 16:22] VITALS: BP 133/73
[2020-04-07] MEDS: SUCRALFATE 1 GM TABLET PO SCH ×2 (17:23→20:09)
[2020-04-07 20:00] VITALS: BP 179/63
[2020-04-07 20:10] VITALS: BP 176/67
[2020-04-07] MEDS: METOPROLOL TARTRATE 25 MG TAB PO SCH (20:10)
[2020-04-07] MEDS: TICAGRELOR 90 MG TABLET PO SCH (20:10)
[2020-04-07] MEDS ORDERED: TEMPLATE NON-FORMULARY MED. (Timolol Maleate 1 DROP) OP SCH (21:00)
[2020-04-07] MEDS ORDERED: DORZOLAMIDE OPHTH 2%, 10ML OP SCH (21:00)
[2020-04-07 22:25] VITALS: BP 154/74
[2020-04-08 01:23] VITALS: BP 183/79
[2020-04-08] MEDS ORDERED: ONDANSETRON 2MG/ML, 2ML IVPush PRN (02:00)
[2020-04-08] MEDS ORDERED: hydrALAzine 20 MG/ML, 1ML IV PRN (02:00)
[2020-04-08 03:31] VITALS: BP 104/63
[2020-04-08 05:24] LABS: ANION GAP 9 mmol/L (5-15); CALCIUM 8.5 mg/dL (8.5-10.1); CHLORIDE 103 mmol/L (98-107); CREATININE 0.72 mg/dL (0.55-1.02)
[2020-04-08] MEDS ORDERED: OMEPRAZOLE 20 MG CAPSULE.DR PO SCH (06:30)
[2020-04-08 06:53] VITALS: BP 100/53
[2020-04-08] MEDS ORDERED: TICA90TA PO (07:52)
[2020-04-08] MEDS ORDERED: LISINOPRIL 10 MG TABLET ONE (08:48)
[2020-04-08] MEDS: METOPROLOL TARTRATE 25 MG TAB PO SCH (08:52)
[2020-04-08] MEDS: SUCRALFATE 1 GM TABLET PO SCH (08:52)
[2020-04-08] MEDS: TICAGRELOR 90 MG TABLET PO SCH (08:53)
[2020-04-08] MEDS ORDERED: ASPIRIN 81 MG TABLET EC PO SCH (09:00)
[2020-04-08] MEDS ORDERED: CHOLECALCIFEROL 1,000 UNIT TABLET PO SCH (09:00)
[2020-04-08] MEDS ORDERED: LISINOPRIL 20 MG TABLET PO SCH (09:00)
[2020-04-08] MEDS ORDERED: SUCRALFATE 1 GM TABLET PO SCH (09:00)
[2020-04-08] MEDS ORDERED: ISOSORBIDE MONONITRATE ER 30 MG TABLET PO SCH (09:00)
[2020-04-08] MEDS ORDERED: EZETIMIBE 10 MG TABLET PO SCH (09:00)
[2020-04-08] MEDS ORDERED: VENLAFAXINE 75 MG CAP ER PO SCH (09:00)
[2020-04-08] MEDS ORDERED: ASPIRIN 81 MG TABLET CHEW PO SCH (09:00)
== END 2020-04-08 10:00 | disposition home or self-care (01) ==
LOC: CACL 07:18 → 5SO 15:28 → CACL 23:14 → 5SO 23:21 → DCLOUNGE 04-08 09:48
PROVIDERS: ADMIT Internal Medicine Cardiovascular Disease; ATTEND Internal Medicine Cardiovascular Disease
DX: I25.10 Atherosclerotic heart disease of native coronary artery without angina pectoris (principal); I25.82 Chronic total occlusion of coronary artery; E78.2 Mixed hyperlipidemia; J44.9 Chronic obstructive pulmonary disease, unspecified; I10 Essential (primary) hypertension; Z87.891 Personal history of nicotine dependence; Z79.899 Other long term (current) drug therapy; Z95.1 Presence of aortocoronary bypass graft
CPT/HCPCS: 36415; 80048; 85025; 85610; 93005; 93459; 96374; 96375; 96376; 99156; 99157; C1725; C1760; C1769; C1874; C1887; C1894; C9600; G0378; J0360; J0583; J2250; J2270; J2405; J3010; J3490; Q9967; J1644

== ENCOUNTER 2020-08-23 06:24 | Day surgery (SDC) | payer MEDICARE ==
[2020-08-21 16:54] LABS: ALBUMIN 3.3 g/dL (3.4-5.0); ANION GAP 2 mmol/L (5-15); CALCIUM 8.8 mg/dL (8.5-10.1); CHLORIDE 106 mmol/L (98-107)
[2020-08-21 16:57] LABS: ALANINE AMINOTRANSFERASE 23 U/L (12-78); ALKALINE PHOSPHATASE 81 U/L (45-117); BILIRUBIN,TOTAL 0.4 mg/dL (0.2-1.0); TOTAL PROTEIN 6.8 g/dL (6.4-8.2)
[~2020-08-23] VITALS: Ht 154.9 cm; Wt 47.8 kg
[~2020-08-23 06:24] MED LIST changes: +CHOL10003 PO; +DORZ10DR27 OP; +ISOS30TA8 PO; +TICA90TA PO; +TIMO5DRO33 OP; +TRIAMCINOLONE TP; +VENL75CA6 PO
[2020-08-23 07:16] VITALS: BP 155/67
[2020-08-23] MEDS ORDERED: LACTATED RINGERS 1,000 ML IV SCH (07:30)
[2020-08-23] MEDS ORDERED: PROMETHAZINE 25 MG/ML, 1ML IVPush PRN (07:30)
[2020-08-23] MEDS ORDERED: ONDANSETRON 2MG/ML, 2ML IVPush PRN (07:30)
[2020-08-23] MEDS ORDERED: FENTANYL PF 100 MCG/2ML IV PRN (07:30)
[2020-08-23] MEDS ORDERED: ACETAMINOPHEN 325 MG TABLET PO PRN (07:30)
[2020-08-23] MEDS ORDERED: EPHEDRINE 50 MG/ML, 1ML IVPush PRN (07:30)
[2020-08-23] MEDS ORDERED: hydrALAzine 20 MG/ML, 1ML IV PRN (07:30)
[2020-08-23] MEDS ORDERED: LABETALOL 5MG/ML, 20ML IV PRN (07:30)
[2020-08-23] MEDS ORDERED: CHLORHEXIDINE 15 ML UDC MM ONE (07:30)
[2020-08-23] MEDS ORDERED: PROPOFOL 10 MG/ML, 20ML ONE (10:17)
== END 2020-08-23 10:20 | disposition home or self-care (01) ==
LOC: OUT 06:24
PROVIDERS: ATTEND Internal Medicine Gastroenterology
DX: R13.19 Other dysphagia (principal); K22.2 Esophageal obstruction; Z20.828 Contact with and (suspected) exposure to other viral communicable diseases; K21.9 Gastro-esophageal reflux disease without esophagitis; K58.9 Irritable bowel syndrome, unspecified; I10 Essential (primary) hypertension; E11.9 Type 2 diabetes mellitus without complications; I25.10 Atherosclerotic heart disease of native coronary artery without angina pectoris; Z79.82 Long term (current) use of aspirin; Z79.899 Other long term (current) drug therapy; Z86.73 Personal history of transient ischemic attack (TIA), and cerebral infarction without residual deficits; Z87.891 Personal history of nicotine dependence; Z88.2 Allergy status to sulfonamides; Z88.5 Allergy status to narcotic agent; Z88.8 Allergy status to other drugs, medicaments and biological substances; Z90.710 Acquired absence of both cervix and uterus; Z95.1 Presence of aortocoronary bypass graft; Z98.890 Other specified postprocedural states
CPT/HCPCS: 36415; 43249; 80053; 82962; 87635; 93005; C1725; J2704; J7120

== ENCOUNTER 2020-11-27 00:51 | Observation (INO) | payer MEDICARE ==
[~2020-11-27] VITALS: Ht 154.9 cm; Wt 49.0 kg
[~2020-11-27 00:51] MED LIST changes: -ASPI-515 PO/NG; +ASPI-963 PO/NG; -HYDR-3246 PO; +HYDR-3248 PO
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
--- NOTE | 2020-11-27 01:03 | NUR ---
PT GIVEN WARM BLANKETS AND IS CLOSING EYES. NO VOMITING AT THIS TIME
[2020-11-27] MEDS ORDERED: ONDANSETRON 2MG/ML, 2ML ONE (01:16)
[2020-11-27] MEDS ORDERED: SODIUM CHLORIDE 0.9% 1,000ML IVBOLUS ONE (01:30)
[2020-11-27] MEDS ORDERED: ONDANSETRON 2MG/ML, 2ML IVPush ONE (01:30)
[2020-11-27 01:35] LABS: MEAN CORPUSCULAR HEMOGLOBIN 31.8 pg (27.0-34.8); MEAN CORPUSCULAR HGB CONC 33.7 g/dL (32.4-35.8); PLATELET COUNT 287 x10^3/uL (130-400); RED BLOOD COUNT 4.67 x10^6/uL (3.82-5.3); RED CELL DISTRIBUTION WIDTH 13.8 % (9.6-15.2)
[2020-11-27 01:43] LABS: ALANINE AMINOTRANSFERASE 28 U/L (12-78); ALBUMIN 3.6 g/dL (3.4-5.0); ANION GAP 11 mmol/L (5-15); CHLORIDE 106 mmol/L (98-107); CREATININE 1.25 mg/dL (0.55-1.02)
[2020-11-27 01:48] LABS: ALKALINE PHOSPHATASE 86 U/L (45-117); BILIRUBIN,TOTAL 0.4 mg/dL (0.2-1.0); TOTAL PROTEIN 7.4 g/dL (6.4-8.2); TROPONIN I < 0.015 ng/mL (0.000-0.045)
[2020-11-27 01:55] LABS: MD YES
[2020-11-27 02:03] LABS: BAND#(MANUAL) 1.64 x10^3/uL; BANDS%(MANUAL) 10 % (0-7); LYMPH#(MANUAL) 0.33 x10^3/uL (1-3.4); LYMPHS% (MANUAL) 2 % (22-44); METAMYELOCYTES# (MANUAL) 0.33 x10^3/uL (0-0); METAMYELOCYTES% (MANUAL) 2 % (0-1); REACTIVE LYMPHS # (MANUAL) 0.49 x10^3/uL (0-0); REACTIVE LYMPHS % (MANUAL) 3 % (0-0)
[2020-11-27 02:04] LABS: MONOS#(MANUAL) 0.82 x10^3/uL (0.3-2.7); MONOS% (MANUAL) 5 % (2-9); OTHER CELLS # (MANUAL) 0.16 x10^3/uL (0-0); OTHER CELLS % (MANUAL) 1 % (0-0); SEG#(MANUAL) 12.63 x10^3/uL (1.8-6.8); SEGS% (MANUAL) 77 % (42-75)
[2020-11-27 02:05] LABS: ANISOCYTOSIS 1+; PMNS WITH VACUOLES 1+
[2020-11-27 02:06] LABS: <PLATELET ESTIMATE> ADEQUATE; <PLT MORPHOLOGY> NORMAL PLT MORPH
--- NOTE | 2020-11-27 02:17 | NUR ---
PT SLEEPING, REPS EVEN AND UNLABORED.
--- NOTE | 2020-11-27 02:55 | NUR ---
REPORT GIVEN TO JEAN-PIERRE LIMA
[2020-11-27] MEDS ORDERED: SODIUM CHLORIDE 0.9% 1,000 ML IV ONE (03:00)
[2020-11-27] MEDS ORDERED: ONDANSETRON 2MG/ML, 2ML IVPush PRN (03:00)
--- NOTE | 2020-11-27 03:05 | NUR ---
REPORT GIVEN TO RENETTA LIMA
[2020-11-27 03:39] VITALS: BP 140/56
[2020-11-27] MEDS ORDERED: OMNIPAQUE 350 MG/ML, 100ML BOTTLE ONE (03:56)
[2020-11-27] MEDS ORDERED: LABETALOL 5MG/ML, 20ML IVPush PRN (04:30)
[2020-11-27] MEDS ORDERED: ACETAMINOPHEN 325 MG TABLET PO PRN (04:30)
[2020-11-27] MEDS ORDERED: morphine SULFATE 10 MG/ML, 1ML IVPush PRN (04:30)
[2020-11-27] MEDS ORDERED: PROMETHAZINE 25 MG/ML, 1ML IM PRN (04:30)
[2020-11-27] MEDS: SUCRALFATE 1 GM TABLET PO SCH ×4 (05:24→20:56)
[2020-11-27] MEDS: LACTATED RINGERS 1,000 ML IV SCH ×2 (05:24→11:30)
[2020-11-27 06:51] VITALS: BP 103/65
[2020-11-27] MEDS: VENLAFAXINE 75 MG CAP ER PO SCH (09:41)
[2020-11-27] MEDS: EZETIMIBE 10 MG TABLET PO SCH (09:41)
[2020-11-27] MEDS: ASPIRIN 81 MG TABLET CHEW PO SCH ×2 (09:42→09:45)
[2020-11-27] MEDS: ISOSORBIDE MONONITRATE ER 30 MG TABLET PO SCH (09:42)
[2020-11-27] MEDS: METOPROLOL TARTRATE 25 MG TAB PO SCH ×2 (09:42→20:54)
[2020-11-27] MEDS: OMEPRAZOLE 20 MG CAPSULE.DR PO SCH (09:42)
[2020-11-27 10:18] LABS: MICROSCOPIC NOT IND
[2020-11-27 12:17] VITALS: BP 96/56
[2020-11-27 12:21] VITALS: BP 95/53
[2020-11-27 19:25] VITALS: BP 115/56
[2020-11-28 01:09] VITALS: BP 95/55
[2020-11-28 04:39] LABS: BASOPHILS % (AUTO) 0 % (0-1); EOSINOPHILS % (AUTO) 4 % (1-7); LYMPHOCYTES % (AUTO) 22 % (22-44); MEAN CORPUSCULAR HEMOGLOBIN 32.8 pg (27.0-34.8); MEAN CORPUSCULAR HGB CONC 34.5 g/dL (32.4-35.8); MEAN PLATELET VOLUME 8.1 fL (7.4-10.4); MONOCYTES % (AUTO) 9 % (2-9); NEUTROPHILS % (AUTO) 64 % (42-75); PLATELET COUNT 217 x10^3/uL (130-400); RED BLOOD COUNT 3.39 x10^6/uL (3.82-5.3); RED CELL DISTRIBUTION WIDTH 13.6 % (9.6-15.2)
[2020-11-28 04:40] LABS: MD NO
[2020-11-28 04:53] LABS: ANION GAP 5 mmol/L (5-15); CHLORIDE 112 mmol/L (98-107); CREATININE 0.72 mg/dL (0.55-1.02)
[2020-11-28] MEDS: SUCRALFATE 1 GM TABLET PO SCH ×2 (06:08→12:10)
[2020-11-28 07:03] VITALS: BP 118/61
[2020-11-28] MEDS: EZETIMIBE 10 MG TABLET PO SCH (08:05)
[2020-11-28] MEDS: OMEPRAZOLE 20 MG CAPSULE.DR PO SCH (08:05)
[2020-11-28] MEDS: ISOSORBIDE MONONITRATE ER 30 MG TABLET PO SCH (08:06)
[2020-11-28] MEDS: METOPROLOL TARTRATE 25 MG TAB PO SCH (08:06)
[2020-11-28] MEDS: ASPIRIN 81 MG TABLET CHEW PO SCH (08:06)
[2020-11-28] MEDS: VENLAFAXINE 75 MG CAP ER PO SCH (08:06)
[2020-11-28] MEDS ORDERED: FLU VACC QS2020-21(6MOS UP)/PF 60MCG/0.5 ML SYR IM-VACC ONE (11:30)
== END 2020-11-28 13:35 | disposition home or self-care (01) ==
LOC: ED 01:22 → INTOOBSV 03:06 → EDIP 03:06 → 4NW 03:27
PROVIDERS: ADMIT Family Medicine; ATTEND Family Medicine
DX: K52.9 Noninfective gastroenteritis and colitis, unspecified (principal); R65.10 Systemic inflammatory response syndrome (SIRS) of non-infectious origin without acute organ dysfunction; N17.0 Acute kidney failure with tubular necrosis; D72.829 Elevated white blood cell count, unspecified; D72.825 Bandemia; E11.65 Type 2 diabetes mellitus with hyperglycemia; I25.10 Atherosclerotic heart disease of native coronary artery without angina pectoris; J44.9 Chronic obstructive pulmonary disease, unspecified; K22.2 Esophageal obstruction; E78.5 Hyperlipidemia, unspecified; I10 Essential (primary) hypertension; K76.0 Fatty (change of) liver, not elsewhere classified; Z79.82 Long term (current) use of aspirin; Z95.1 Presence of aortocoronary bypass graft; Z87.891 Personal history of nicotine dependence; Z79.899 Other long term (current) drug therapy; Z90.710 Acquired absence of both cervix and uterus; Z86.73 Personal history of transient ischemic attack (TIA), and cerebral infarction without residual deficits; Z90.49 Acquired absence of other specified parts of digestive tract; Z95.5 Presence of coronary angioplasty implant and graft; Z23 Encounter for immunization
CPT/HCPCS: 36415; 74177; 80048; 80053; 81003; 83605; 83690; 84145; 84484; 85025; 90686; 93005; 96361; 96374; 99285; G0008; G0378; J2405; J7030; J7120; Q9967

== ENCOUNTER 2021-03-28 12:08 | Emergency (ER) | payer MEDICARE ==
[~2021-03-28] VITALS: Ht 154.9 cm; Wt 50.0 kg
[~2021-03-28 12:08] MED LIST changes: +DOXA1TAB2 PO; +EVOL140P3 SQ; +HYDR12.59 PO; +LATA2.5D4 EACHEYE; +MIRT-14 PO; -MIRT-34 PO; +PRAS5TAB6 PO
[2021-03-28] MEDS ORDERED: L.E.T SOLUTION TP ONE (12:30)
[2021-03-28] MEDS ORDERED: DIPH,PERTUSS(ACELL),TET VAC/PF 0.5 ML IM-VACC ONE ×2 (12:30→12:53)
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
--- NOTE | 2021-03-28 12:42 | NUR ---
PT TO CT
[2021-03-28] MEDS ORDERED: BACITRACIN ZINC OINT 500U/GM, 0.9 GM ONE (13:23)
[2021-03-28] MEDS ORDERED: ACETAMINOPHEN 325 MG TABLET ONE (13:44)
[2021-03-28] MEDS ORDERED: ACETAMINOPHEN 325 MG TABLET PO ONE (14:00)
--- NOTE | 2021-03-28 14:02 | NUR ---
DICHARGE INSTRUCTIONS REVIEWED WITH PT. ALL QUESTIONS ANSWERED AT THIS TIME.
[2021-03-28 14:03] VITALS: BP 137/72
== END 2021-03-28 14:05 | disposition home or self-care (01) ==
LOC: ED 14:02
DX: S16.1XXA Strain of muscle, fascia and tendon at neck level, initial encounter (principal); S09.90XA Unspecified injury of head, initial encounter; S50.912A Unspecified superficial injury of left forearm, initial encounter; S51.802A Unspecified open wound of left forearm, initial encounter; R55 Syncope and collapse; E78.5 Hyperlipidemia, unspecified; K21.9 Gastro-esophageal reflux disease without esophagitis; E11.9 Type 2 diabetes mellitus without complications; I10 Essential (primary) hypertension; Z90.89 Acquired absence of other organs; Z86.73 Personal history of transient ischemic attack (TIA), and cerebral infarction without residual deficits; Z98.61 Coronary angioplasty status; Z90.710 Acquired absence of both cervix and uterus; Z95.1 Presence of aortocoronary bypass graft; Z88.2 Allergy status to sulfonamides; Z88.8 Allergy status to other drugs, medicaments and biological substances; Z88.5 Allergy status to narcotic agent; W18.30XA Fall on same level, unspecified, initial encounter; Y93.89 Activity, other specified; Y92.009 Unspecified place in unspecified non-institutional (private) residence as the place of occurrence of the external cause; Y99.8 Other external cause status
CPT/HCPCS: 70450; 72125; 90471; 90715; 93005; 99285

== ENCOUNTER 2021-05-01 14:49 | Inpatient (IN) | payer MEDICARE ==
[2021-05-01] VITALS (9 sets, daily range): BP systolic 82–158; BP diastolic 41–68
[~2021-05-01] VITALS: Ht 154.9 cm; Wt 47.9 kg
[~2021-05-01 14:49] MED LIST changes: +ISOS60TA36 PO; +LATA7.5D EACHEYE; +TIMO1DRO6 EACHEYE; +VENL37.57 PO
[2021-05-01] MEDS ORDERED: SODIUM CHLORIDE 0.9% 1,000ML IVBOLUS ONE (16:00)
[2021-05-01] MEDS ORDERED: hydrALAzine 20 MG/ML, 1ML IVPush PRN (17:00)
[2021-05-01] MEDS ORDERED: ONDANSETRON ODT 4 MG PO PRN (17:00)
[2021-05-01] MEDS ORDERED: BACLOFEN 10 MG TABLET PO PRN (17:00)
[2021-05-01] MEDS ORDERED: BUTALB/APAP/CAFFEINE 50MG/325MG/40MG PO PRN (17:00)
[2021-05-01] MEDS: OMEPRAZOLE 20 MG CAPSULE.DR PO SCH ×2 (17:00→17:17)
[2021-05-01] MEDS: PLEASE ENTER HEIGHT AND WEIGHT MC SCH (17:00)
[2021-05-01] MEDS: ENOXAPARIN 40 MG/0.4 ML SQ SCH (17:17)
[2021-05-01] MEDS: BUTALB/APAP/CAFFEINE 50MG/325MG/40MG PO PRN (17:17)
[2021-05-01] MEDS: ONDANSETRON 2MG/ML, 2ML IVPush PRN (17:23)
[2021-05-01] MEDS: TIMOLOL OPHTH 0.5%, 5ML EACHEYE SCH (21:00)
[2021-05-01] MEDS ORDERED: LISINOPRIL 20 MG TABLET PO SCH (21:00)
[2021-05-01] MEDS: LATANOPROST OPHTH 0.005%, 2.5ML OP SCH (22:28)
[2021-05-01] MEDS: DORZOLAMIDE OPHTH 2%, 10ML EACHEYE SCH (22:28)
[2021-05-01] MEDS: MELATONIN 5 MG TABLET PO SCH (22:28)
[2021-05-01] MEDS: PRASUGREL 5 MG TABLET PO SCH (23:57)
[2021-05-02] VITALS (8 sets, daily range): BP systolic 86–168; BP diastolic 47–71
[2021-05-02] MEDS: PLEASE ENTER HEIGHT AND WEIGHT MC SCH ×2 (01:00→09:00)
[2021-05-02 05:08] LABS: BASOPHILS % (AUTO) 0 % (0-1); EOSINOPHILS % (AUTO) 1 % (1-7); LYMPHOCYTES % (AUTO) 22 % (22-44); MEAN CORPUSCULAR HEMOGLOBIN 30.9 pg (27.0-34.8); MEAN CORPUSCULAR HGB CONC 33.9 g/dL (32.4-35.8); MEAN PLATELET VOLUME 8.2 fL (7.4-10.4); MONOCYTES % (AUTO) 12 % (2-9); NEUTROPHILS % (AUTO) 65 % (42-75); PLATELET COUNT 233 x10^3/uL (130-400); RED BLOOD COUNT 3.75 x10^6/uL (3.82-5.3); RED CELL DISTRIBUTION WIDTH 15.2 % (9.6-15.2)
[2021-05-02 05:18] LABS: CHLORIDE 105 mmol/L (98-107)
[2021-05-02 05:25] LABS: ALANINE AMINOTRANSFERASE 21 U/L (12-78); ALBUMIN 2.6 g/dL (3.4-5.0); ALKALINE PHOSPHATASE 72 U/L (45-117); ANION GAP 10 mmol/L (5-15); BILIRUBIN,TOTAL 0.5 mg/dL (0.2-1.0); CALCIUM 8.1 mg/dL (8.5-10.1); CREATININE 0.81 mg/dL (0.55-1.02); TOTAL PROTEIN 5.6 g/dL (6.4-8.2)
[2021-05-02] MEDS: LISINOPRIL 20 MG TABLET PO SCH ×2 (09:00→20:46)
[2021-05-02] MEDS: ISOSORBIDE MONONITRATE ER 60 MG TABLET PO SCH (09:00)
[2021-05-02] MEDS ORDERED: ISOSORBIDE MONONITRATE ER 60 MG TABLET PO SCH (09:00)
[2021-05-02] MEDS ORDERED: HYDROCHLOROTHIAZIDE 12.5 MG CAPSULE PO SCH ×2 (09:00)
[2021-05-02] MEDS: SENNA/DOCUSATE TABLET PO SCH (09:00)
[2021-05-02] MEDS: VENLAFAXINE 37.5MG TABLET PO SCH (09:02)
[2021-05-02] MEDS: OMEPRAZOLE 20 MG CAPSULE.DR PO SCH ×2 (09:02→18:07)
[2021-05-02] MEDS: DORZOLAMIDE OPHTH 2%, 10ML EACHEYE SCH ×2 (09:13→20:46)
[2021-05-02] MEDS ORDERED: MAGNESIUM SULFATE PMX 2GM/50ML 50 ML IV ONE (10:00)
[2021-05-02] MEDS: SODIUM CHLORIDE 0.9% 1,000 ML IV SCH ×3 (11:32→12:32)
[2021-05-02] MEDS: ENOXAPARIN 40 MG/0.4 ML SQ SCH (18:07)
[2021-05-02] MEDS: PRASUGREL 5 MG TABLET PO SCH (20:45)
[2021-05-02] MEDS: MELATONIN 5 MG TABLET PO SCH (20:46)
[2021-05-02] MEDS: LATANOPROST OPHTH 0.005%, 2.5ML OP SCH (20:47)
[2021-05-02] MEDS: TIMOLOL OPHTH 0.5%, 5ML EACHEYE SCH (20:47)
[2021-05-03 00:14] VITALS: BP 130/63
[2021-05-03 07:44] VITALS: BP 152/52
[2021-05-03] MEDS: OMEPRAZOLE 20 MG CAPSULE.DR PO SCH ×2 (07:45→17:25)
[2021-05-03] MEDS: VENLAFAXINE 37.5MG TABLET PO SCH (07:45)
[2021-05-03] MEDS: LISINOPRIL 20 MG TABLET PO SCH ×2 (07:46→21:05)
[2021-05-03] MEDS: ISOSORBIDE MONONITRATE ER 60 MG TABLET PO SCH (07:46)
[2021-05-03] MEDS: SENNA/DOCUSATE TABLET PO SCH (07:47)
[2021-05-03 07:48] VITALS: BP 119/68
[2021-05-03] MEDS: DORZOLAMIDE OPHTH 2%, 10ML EACHEYE SCH ×2 (08:12→21:07)
[2021-05-03 12:32] VITALS: BP 173/74
[2021-05-03] MEDS: BUTALB/APAP/CAFFEINE 50MG/325MG/40MG PO PRN ×2 (15:51→21:08)
[2021-05-03] MEDS: ENOXAPARIN 40 MG/0.4 ML SQ SCH (17:25)
[2021-05-03 19:29] VITALS: BP 147/71
[2021-05-03] MEDS: MELATONIN 5 MG TABLET PO SCH (21:00)
[2021-05-03] MEDS: TIMOLOL OPHTH 0.5%, 5ML EACHEYE SCH (21:05)
[2021-05-03] MEDS: PRASUGREL 5 MG TABLET PO SCH (21:05)
[2021-05-03] MEDS: LATANOPROST OPHTH 0.005%, 2.5ML OP SCH (21:07)
[2021-05-04] VITALS (13 sets, daily range): BP systolic 83–173; BP diastolic 46–79
[2021-05-04] MEDS: SODIUM CHLORIDE 0.9% 1,000 ML IV SCH (01:56)
[2021-05-04 04:38] LABS: BASOPHILS % (AUTO) 1 % (0-1); EOSINOPHILS % (AUTO) 3 % (1-7); LYMPHOCYTES % (AUTO) 30 % (22-44); MONOCYTES % (AUTO) 13 % (2-9); NEUTROPHILS % (AUTO) 54 % (42-75); PLATELET COUNT 215 x10^3/uL (130-400); RED BLOOD COUNT 4.01 x10^6/uL (3.82-5.3); RED CELL DISTRIBUTION WIDTH 15.6 % (9.6-15.2)
[2021-05-04 04:49] LABS: ANION GAP 6 mmol/L (5-15); CALCIUM 8.4 mg/dL (8.5-10.1); CHLORIDE 108 mmol/L (98-107); CREATININE 0.67 mg/dL (0.55-1.02)
[2021-05-04] MEDS: VENLAFAXINE 37.5MG TABLET PO SCH (07:36)
[2021-05-04] MEDS: SENNA/DOCUSATE TABLET PO SCH (07:36)
[2021-05-04] MEDS: DORZOLAMIDE OPHTH 2%, 10ML EACHEYE SCH ×2 (07:36→20:11)
[2021-05-04] MEDS: OMEPRAZOLE 20 MG CAPSULE.DR PO SCH ×2 (07:37→17:36)
[2021-05-04] MEDS: ISOSORBIDE MONONITRATE ER 60 MG TABLET PO SCH (07:37)
[2021-05-04] MEDS: LISINOPRIL 20 MG TABLET PO SCH ×2 (07:37→20:11)
[2021-05-04] MEDS: ENOXAPARIN 40 MG/0.4 ML SQ SCH (17:36)
[2021-05-04] MEDS: PRASUGREL 5 MG TABLET PO SCH (20:10)
[2021-05-04] MEDS: LATANOPROST OPHTH 0.005%, 2.5ML OP SCH (20:11)
[2021-05-04] MEDS: TIMOLOL OPHTH 0.5%, 5ML EACHEYE SCH (20:11)
[2021-05-04] MEDS: MELATONIN 5 MG TABLET PO SCH (20:11)
[2021-05-05] VITALS (10 sets, daily range): BP systolic 120–152; BP diastolic 58–75
[2021-05-05] MEDS: OMEPRAZOLE 20 MG CAPSULE.DR PO SCH ×2 (06:30→17:12)
[2021-05-05] MEDS: VENLAFAXINE 37.5MG TABLET PO SCH (08:52)
[2021-05-05] MEDS: SENNA/DOCUSATE TABLET PO SCH (08:52)
[2021-05-05] MEDS: LISINOPRIL 20 MG TABLET PO SCH ×2 (08:52→20:00)
[2021-05-05] MEDS: ISOSORBIDE MONONITRATE ER 60 MG TABLET PO SCH (08:52)
[2021-05-05] MEDS: DORZOLAMIDE OPHTH 2%, 10ML EACHEYE SCH ×2 (09:47→20:01)
[2021-05-05] MEDS: ONDANSETRON 2MG/ML, 2ML IVPush PRN (12:39)
[2021-05-05] MEDS: ENOXAPARIN 40 MG/0.4 ML SQ SCH (17:13)
[2021-05-05] MEDS: MELATONIN 5 MG TABLET PO SCH (20:00)
[2021-05-05] MEDS: PRASUGREL 5 MG TABLET PO SCH (20:00)
[2021-05-05] MEDS: TIMOLOL OPHTH 0.5%, 5ML EACHEYE SCH (20:01)
[2021-05-05] MEDS: LATANOPROST OPHTH 0.005%, 2.5ML OP SCH (20:01)
[2021-05-05] MEDS: ACETAMINOPHEN 325 MG TABLET PO PRN (22:32)
[2021-05-06] VITALS (8 sets, daily range): BP systolic 106–160; BP diastolic 58–74
[2021-05-06] MEDS: VENLAFAXINE 37.5MG TABLET PO SCH (08:16)
[2021-05-06] MEDS: OMEPRAZOLE 20 MG CAPSULE.DR PO SCH ×2 (08:16→17:37)
[2021-05-06] MEDS: DORZOLAMIDE OPHTH 2%, 10ML EACHEYE SCH ×2 (08:17→22:00)
[2021-05-06] MEDS: LISINOPRIL 20 MG TABLET PO SCH ×2 (08:17→20:52)
[2021-05-06] MEDS: ISOSORBIDE MONONITRATE ER 60 MG TABLET PO SCH (08:17)
[2021-05-06] MEDS: MECLIZINE 25 MG TABLET PO PRN ×2 (08:21→20:53)
[2021-05-06] MEDS: ACETAMINOPHEN 325 MG TABLET PO PRN (08:22)
[2021-05-06] MEDS: SENNA/DOCUSATE TABLET PO SCH (08:23)
[2021-05-06 11:01] LABS: BASOPHILS % (AUTO) 1 % (0-1); EOSINOPHILS % (AUTO) 1 % (1-7); LYMPHOCYTES % (AUTO) 16 % (22-44); MEAN CORPUSCULAR HEMOGLOBIN 30.7 pg (27.0-34.8); MEAN CORPUSCULAR HGB CONC 33.8 g/dL (32.4-35.8); MEAN PLATELET VOLUME 7.9 fL (7.4-10.4); MONOCYTES % (AUTO) 10 % (2-9); NEUTROPHILS % (AUTO) 72 % (42-75); PLATELET COUNT 270 x10^3/uL (130-400); RED BLOOD COUNT 4.01 x10^6/uL (3.82-5.3); RED CELL DISTRIBUTION WIDTH 15.3 % (9.6-15.2)
[2021-05-06 11:10] LABS: ANION GAP 4 mmol/L (5-15); CALCIUM 8.5 mg/dL (8.5-10.1); CHLORIDE 106 mmol/L (98-107); CREATININE 0.79 mg/dL (0.55-1.02)
[2021-05-06] MEDS: ENOXAPARIN 40 MG/0.4 ML SQ SCH (17:37)
[2021-05-06] MEDS: PRASUGREL 5 MG TABLET PO SCH (20:52)
[2021-05-06] MEDS: MELATONIN 5 MG TABLET PO SCH (20:52)
[2021-05-06] MEDS: BUTALB/APAP/CAFFEINE 50MG/325MG/40MG PO PRN (21:29)
[2021-05-06] MEDS: TIMOLOL OPHTH 0.5%, 5ML EACHEYE SCH (22:00)
[2021-05-06] MEDS: LATANOPROST OPHTH 0.005%, 2.5ML OP SCH (22:00)
[2021-05-07 00:53] VITALS: BP 100/53
[2021-05-07 06:38] VITALS: BP 113/65
[2021-05-07 06:41] VITALS: BP 146/69
[2021-05-07 06:45] VITALS: BP 102/59
[2021-05-07] MEDS: VENLAFAXINE 37.5MG TABLET PO SCH (08:26)
[2021-05-07] MEDS: OMEPRAZOLE 20 MG CAPSULE.DR PO SCH ×2 (08:26→17:00)
[2021-05-07] MEDS: LISINOPRIL 20 MG TABLET PO SCH (08:26)
[2021-05-07] MEDS: MECLIZINE 25 MG TABLET PO PRN (08:26)
[2021-05-07] MEDS: DORZOLAMIDE OPHTH 2%, 10ML EACHEYE SCH (08:27)
[2021-05-07] MEDS: SENNA/DOCUSATE TABLET PO SCH (08:29)
[2021-05-07] MEDS ORDERED: ISOSORBIDE MONONITRATE ER 30 MG TABLET PO SCH (09:00)
[2021-05-07 12:23] VITALS: BP 170/62
[2021-05-07] MEDS ORDERED: MECL-101 PO (15:56)
[2021-05-07] MEDS ORDERED: ISOS30TA8 PO (15:56)
[2021-05-07] MEDS: ENOXAPARIN 40 MG/0.4 ML SQ SCH (17:00)
== END 2021-05-07 18:35 | disposition home health service (06) | DRG 312 ==
LOC: INTOOBSV 14:49 → 4WST 14:49 → OBSVTOIN 05-02 14:46
PROVIDERS: ADMIT Family Medicine; ATTEND Family Medicine
DX: I95.1 Orthostatic hypotension (principal); E87.1 Hypo-osmolality and hyponatremia; R45.851 Suicidal ideations; F33.0 Major depressive disorder, recurrent, mild; T50.2X5A Adverse effect of carbonic-anhydrase inhibitors, benzothiadiazides and other diuretics, initial encounter; E83.42 Hypomagnesemia; E11.51 Type 2 diabetes mellitus with diabetic peripheral angiopathy without gangrene; E78.5 Hyperlipidemia, unspecified; H35.30 Unspecified macular degeneration; H40.9 Unspecified glaucoma; W18.39XA Other fall on same level, initial encounter; I10 Essential (primary) hypertension; I25.10 Atherosclerotic heart disease of native coronary artery without angina pectoris; I48.91 Unspecified atrial fibrillation; Z60.2 Problems related to living alone; J45.909 Unspecified asthma, uncomplicated; N81.10 Cystocele, unspecified; Z86.73 Personal history of transient ischemic attack (TIA), and cerebral infarction without residual deficits; Z87.891 Personal history of nicotine dependence; I25.2 Old myocardial infarction; Z95.1 Presence of aortocoronary bypass graft; Y92.89 Other specified places as the place of occurrence of the external cause; Z79.899 Other long term (current) drug therapy; Z88.2 Allergy status to sulfonamides; Z88.6 Allergy status to analgesic agent; Z88.5 Allergy status to narcotic agent; Z88.8 Allergy status to other drugs, medicaments and biological substances; Y93.89 Activity, other specified; Y99.8 Other external cause status
CPT/HCPCS: 36415; 80048; 80053; 82533; 83735; 84100; 85025; G0378; J1650; J2405; Q0162; J3475; J7030